=== PATIENT | male | born 1960 | race Caucasian/White ===

== ENCOUNTER 2019-05-16 16:22 | Emergency (ER) | payer SELFPAY ==
[2019-05-16] MEDS ORDERED: PROPARACAINE 0.5% OPHTH DROPS 15 ML EACHEYE STA (18:50)
[2019-05-16] MEDS ORDERED: TETANUS/DIPHTHERIA/PERTUSSIS 0.5 ML SYRINGE IM ONE (19:16)
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
[2019-05-16 19:51] VITALS: BP 120/73
== END 2019-05-16 20:06 | disposition home or self-care (01) ==
LOC: ED 16:22
DX: S05.01XA Injury of conjunctiva and corneal abrasion without foreign body, right eye, initial encounter (principal); H11.31 Conjunctival hemorrhage, right eye; W22.8XXA Striking against or struck by other objects, initial encounter; Y93.H2 Activity, gardening and landscaping; Z23 Encounter for immunization
CPT/HCPCS: 90471; 90715; 99283; J3490

== ENCOUNTER 2020-08-19 18:10 | Emergency (ER) | payer OTHER ==
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
[2020-08-19 18:51] LABS: BILIRUBIN,URINE NEGATIVE (NEGATIVE); GLUCOSE, URINE (UA) NEGATIVE (NEGATIVE); KETONES,URINE (UA) NEGATIVE (NEGATIVE); LEUKOCYTE ESTERASE, URINE NEGATIVE (NEGATIVE); NITRITE,URINE NEGATIVE (NEGATIVE); OCCULT BLOOD,URINE NEGATIVE (NEGATIVE); PROTEIN,URINE NEGATIVE (NEGATIVE); UROBILINOGEN,URINE 0.2 (NORMAL) E.U./dL (NORMAL)
[2020-08-19 18:53] LABS: CLARITY,URINE CLEAR (CLEAR)
[2020-08-19] MEDS ORDERED: ONDANSETRON 4 MG/2 ML VIAL IVP STA (19:18)
[2020-08-19 19:19] LABS: BASOPHILS % (AUTO) 0.6 %; EOSINOPHILS # (AUTO) 0.1 10^3/uL (0.0-0.7); EOSINOPHILS % (AUTO) 2.2 %; HGB - HEMOGLOBIN 16.3 g/dL (14.0-18.0); LYMPHOCYTES # (AUTO) 1.9 10^3/uL (1.5-3.5); LYMPHOCYTES % (AUTO) 35.1 %; MEAN CORPUSCULAR HEMOGLOBIN 32.9 pg (27.0-31.0); MEAN CORPUSCULAR HGB CONC 35.4 g/dL (32.0-36.0); MEAN CORPUSCULAR VOLUME 92.9 fL (80.0-94.0); MONOCYTES # (AUTO) 0.4 10^3/uL (0.0-1.0); MONOCYTES % (AUTO) 7.9 %; NEUTROPHILS # (AUTO) 2.9 10^3/uL (1.5-6.6); PLT - PLATELET COUNT 163 10^3/uL (130-450); RED BLOOD COUNT 4.95 10^6/uL (4.70-6.10); RED CELL DISTRIBUTION WIDTH 13.1 % (12.0-15.0); WHITE BLOOD COUNT 5.4 x10^3/uL (4.8-10.8)
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
[2020-08-19 19:33] LABS: ALBUMIN 4.5 g/dL (3.2-5.5); ALBUMIN/GLOBULIN RATIO 1.6 (1.0-2.2); BILIRUBIN,TOTAL 0.7 mg/dL (0.2-1.0); CALCIUM 9.7 mg/dL (8.5-10.3); CREATININE 0.8 mg/dL (0.6-1.2); TOTAL PROTEIN 7.4 g/dL (6.7-8.2)
[2020-08-19] MEDS ORDERED: IOVERSOL 320 100 ML VIAL IVP ONE ×2 (19:51→20:00)
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
[2020-08-19 21:06] VITALS: BP 122/79
== END 2020-08-19 21:07 | disposition home or self-care (01) ==
LOC: ED 18:10
DX: S39.012A Strain of muscle, fascia and tendon of lower back, initial encounter (principal); R10.12 Left upper quadrant pain; V43.52XA Car driver injured in collision with other type car in traffic accident, initial encounter; Y92.410 Unspecified street and highway as the place of occurrence of the external cause; Y99.0 Civilian activity done for income or pay; R91.8 Other nonspecific abnormal finding of lung field
CPT/HCPCS: 1040M; 72100; 74177; 80053; 81003; 83690; 85025; 96374; 99284; Q9967; 36415; 81001; 87086

== ENCOUNTER 2021-01-09 16:23 | Emergency (ER) | payer SELFPAY ==
[2021-01-09 16:32] VITALS: BP 135/76
[2021-01-09] MEDS ORDERED: HYDROcod/ACETAM 5/325 MG TABLET PO STA (16:43)
--- NOTE | 2021-01-09 16:44 | ED Physician Documentation ---
PD HPI LOWER EXT INJURY - Stated complaint Stated Complaint: LT KNEE PX - Chief complaint Chief Complaint: Ext Problem - History obtained from History obtained from: Patient, Family - Additional information Additional information: 60-year-old gentleman with about 4 to 5 days of atraumatic left knee pain along the medial part of the joint line. He is able to walk and bear weight but with effort. No swelling or fevers. No history of knee problems. Review of Systems Constitutional: denies: Fever, Chills Nose: reports: Reviewed and negative Throat: reports: Reviewed and negative Cardiac: reports: Reviewed and negative Respiratory: reports: Reviewed and negative PD PAST MEDICAL HISTORY - Past Medical History Past Medical History: No - Past Surgical History Past Surgical History: No - Present Medications Home Medications: Ambulatory Orders Medication Instructions Recorded Confirmed Ibuprofen [Motrin] 600 mg PO Q6H PRN #30 tab 08/19/20 01/09/21 HYDROcod/ACETAM 5/325 [[place] 5/325] 1 - 2 tab PO Q6H PRN #15 tablet 01/09/21 Meloxicam [Mobic] 7.5 mg PO BID PRN #20 tablet 01/09/21 - Allergies Allergies/Adverse Reactions: Allergies Allergy/AdvReac Type Severity Reaction Status Date / Time No Known Drug Allergies Allergy Verified 01/09/21 16:32 - Social History Does the pt smoke?: No Smoking Status: Never smoker Does the pt drink ETOH?: No Does the pt have substance abuse?: Yes Substance Use and Type: CBD oil / Products - Immunizations Immunizations are current?: Yes Immunizations: TDAP >10years/unknown - POLST Patient has POLST: No PD ED PE NORMAL - Vitals Vital signs reviewed: Yes - General General: Alert and oriented X 3, No acute distress - HEENT HEENT: PERRL, EOMI - Neck Neck: Supple, no meningeal sign, No bony TTP - Extremities Extremities: Other (Tender along the medial joint line. There might be a tiny effusion. Grind testing and other ligamentous testing is normal but he does have pain with MCL testing.) - Neuro Neuro: Alert and oriented X 3, Normal speech Results - Vitals Vitals: Vital Signs - 24 hr 01/09/21 16:27 Temperature 36.0 C L Heart Rate 69 Respiratory 16 Rate Blood Pressure 135/76 H O2 Saturation 97 Oxygen O2 Source Room air - Rads (name of study) L knee 4v Radiology: EMP read contemporaneously (effusion, DJD, NAD) PD MEDICAL DECISION MAKING - ED course ED course: 60-year-old gentleman with clinically probably an MCL strain of the left knee. Placed in knee immobilizer and given some pain medication. Results of x-ray discussed with patient and family and need for follow-up also discussed. I am prescribing a short course of short-acting opioid pain medication for this patient. I have reviewed the patients STATISTICAL TYPIST and no concerning findings were noted. I have discussed that the opioids are for short term therapy only, and will not be refilled from the ED. Departure - Departure Disposition: 01 Home, Self Care Clinical Impression: MCL sprain of right knee Qualifiers: Encounter type: initial encounter Qualified Code(s): S83.411A - Sprain of medial collateral ligament of right knee, initial encounter Condition: Good Record reviewed to determine appropriate education?: Yes Instructions: ED Effusion Knee Follow-Up: [facility] [Provider Group] Prescriptions: Meloxicam [Mobic] 7.5 mg PO BID PRN #20 tablet PRN Reason: Pain HYDROcod/ACETAM 5/325 [[place] 5/325] 1 - 2 tab PO Q6H PRN #15 tablet PRN Reason: Pain Comments: As discussed, it seems that you probably have strain of the medial collateral ligament of the left knee. If not better in a few days follow-up with the orthopedic clinic, the phone number is on the form here. You can walk and bear weight but I would recommend you wear the knee immobilizer while you do that. Return for new or worsening symptoms. I am prescribing a short course of narcotic pain medication for you. These are potentially dangerous and addictive medications that should be used carefully. These medications may constipate you. Take an [id number] stool softener (docusate) twice daily with plenty of water while taking these medications. If you go 24 hours without a bowel movement, take [id number] miralax, per package instructions. Do not drink or drive while taking these medications. If you received narcotic or sedating medications while in the emergency department, do not drive for 24 hours. Store this medication in a safe, secure place and out of reach of children. It is a violation of federal law to give or sell this medication to another person or to use in a manner other than prescribed. The ED will not refill narcotic prescriptions, including prescriptions lost or stolen. To dispose of unwanted medications: 1. [facility] at [address] in [place] has a medication drop box. They accept prescription medications (in pill form) Sunday through Sunday 9:00 a.m. to 5:00 p.m. 2. The [facility] accepts prescription medications (in pill form only) for disposal year round. Call for more information. 3. Contact the [facility] for the next [facility] sponsored prescription drug collection event. , [phone], or [phone]; Note that many narcotic pain relievers also contain Tylenol/acetaminophen. Please ensure that your total dose of acetaminophen from all sources does not exceed 3 g (3000 mg) per day. Forms: Activity restrictions
--- NOTE | 2021-01-09 17:28 | XRAY Report ---
PROCEDURE: Knee 4 View LT INDICATIONS: L knee pain TECHNIQUE: 4 views of the left knee(s) were acquired. COMPARISON: None. FINDINGS: Bones: No fractures or dislocations. There is medial joint space narrowing and medial osteophytes. No suspicious bony lesions. Soft tissues: A suprapatellar joint effusion is seen. No suspicious soft tissue calcifications. IMPRESSION: 1. Small joint effusion suggests possible internal derangement. 2. No fracture. 3. Degenerative changes. Reviewed by: Swapnil Cabrales on 01/09/2021 5:26 PM PDT Approved by: Swapnil Cabrales on 01/09/2021 5:26 PM PDT Station ID: [id number]
== END 2021-01-09 17:44 | disposition home or self-care (01) ==
LOC: ED 16:23
DX: S83.412A Sprain of medial collateral ligament of left knee, initial encounter (principal); X50.9XXA Other and unspecified overexertion or strenuous movements or postures, initial encounter; Y99.0 Civilian activity done for income or pay; M17.12 Unilateral primary osteoarthritis, left knee
CPT/HCPCS: 73564; 99283; A9270

== ENCOUNTER 2021-08-15 10:22 | Emergency (ER) | payer SELFPAY ==
[2021-08-15] MEDS ORDERED: IBUPROFEN 800 MG TABLET PO STA (12:05)
--- NOTE | 2021-08-15 12:07 | ED Physician Documentation ---
PD HPI DYSPNEA - Stated complaint Stated Complaint: C+ SOA/FEVER - Chief complaint Chief Complaint: Resp - History obtained from History obtained from: Patient - Additional information Additional information: 60-year-old gentleman who is otherwise healthy has been sick for 3 days with chest and abdominal pain and back pain as well as myalgias. He tested positive for COVID at home actually just prior to his symptoms starting. He has chills and low-grade fevers. He tried Tylenol and TheraFlu for the pain which was not too helpful. Review of Systems Constitutional: reports: Fever, Chills, Myalgias, Fatigue Nose: reports: Rhinorrhea / runny nose Throat: reports: Sore throat Cardiac: reports: Chest pain / pressure Respiratory: reports: Dyspnea, Cough PD PAST MEDICAL HISTORY - Past Surgical History Past Surgical History: No - Present Medications Home Medications: Ambulatory Orders Medication Instructions Recorded Confirmed HYDROcod/ACETAM 5/325 [[place] 5/325] 1 - 2 tab PO Q6H PRN #15 tablet 08/15/21 Ibuprofen [Motrin] 800 mg PO Q8H PRN #30 tablet 08/15/21 - Allergies Allergies/Adverse Reactions: Allergies Allergy/AdvReac Type Severity Reaction Status Date / Time No Known Drug Allergies Allergy Verified 01/09/21 16:32 - Social History Does the pt smoke?: No Smoking Status: Never smoker Does the pt drink ETOH?: No Does the pt have substance abuse?: Yes - Immunizations Immunizations are current?: Yes Immunizations: TDAP >10years/unknown - POLST Patient has POLST: No PD ED PE NORMAL - Vitals Vital signs reviewed: Yes - General General: Alert and oriented X 3, No acute distress - HEENT HEENT: Pharynx benign - Neck Neck: Supple, no meningeal sign, No bony TTP - Cardiac Cardiac: RRR, No murmur - Respiratory Respiratory: No respiratory distress, Clear bilaterally - Abdomen Abdomen: Soft, Non tender - Derm Derm: No rash - Extremities Extremities: No edema, No calf tenderness / cord - Neuro Neuro: Alert and oriented X 3, Normal speech Results - Vitals Vitals: Vital Signs - 24 hr 08/15/21 10:47 Temperature 37.0 C Heart Rate 101 H Respiratory 18 Rate Blood Pressure 137/85 H O2 Saturation 96 Oxygen O2 Source Room air - EKG (time done) 1217 Rate: Rate (enter#) (98) Rhythm: NSR [place]: LAD Intervals: Normal [place] QRS: Normal Ischemia: Normal ST segments PD MEDICAL DECISION MAKING - ED course ED course: 60-year-old gentleman with known diagnosis of COVID presents with myalgias back and chest pain. Physical exam is normal and oxygen saturations are excellent. Chest x-ray read as showing potential pulmonary edema but I suspect this is a viral pattern given the other findings and history and physical. He is prescribed medications to help with the symptoms and counseled on quarantine and return precautions. Departure - Departure Disposition: Home, Self Care Clinical Impression: COVID-19 Condition: Good Record reviewed to determine appropriate education?: Yes Instructions: ED Viral Syndrome Prescriptions: Ibuprofen [Motrin] 800 mg PO Q8H PRN #30 tablet PRN Reason: PAIN &/OR FEVER HYDROcod/ACETAM 5/325 [[place] 5/325] 1 - 2 tab PO Q6H PRN #15 tablet PRN Reason: Pain Comments: Envi edouard receta electrnicamente a [facility] en [place]. Tiene neumona por COVID, cecilia sugey niveles de oxgeno son muy buenos. Es comn que las personas tengan mucho dolor y karan de faraz con COVID. Debe hacer cuarentena en casa bo al menos 10 abdi ms. Le estoy recetando un ciclo corto de analgsicos narcticos. Estos son medicamentos potencialmente peligrosos y adictivos que deben usarse con cuidado. Estos medicamentos pueden causarle estreimiento. [place] un ablandador de heces de venta alicia (docusato) dos veces al da con abundante agua mientras alice estos medicamentos. Si pasa 24 horas sin defecar, tome miralax de venta alicia, segn las instrucciones del paquete. No wally ni conduzca mientras alice estos medicamentos. Si recibi medicamentos narcticos o sedantes mientras estaba en el departamento de emergencias, no conduzca bo 24 horas. Guarde vivienne medicamento en un lugar seguro y fuera del alcance de los nios. Es stalin violacin de la [facility] o mining plant operator vivienne medicamento a otra persona o usarlo de stalin manera diferente a la recetada. El ED no volver a surtir recetas de narcticos, incluidas las recetas perdidas o robadas. Para desechar medicamentos no deseados: 1. Precinto [place] del Departamento del [facility] del [facility] en [address] en [place] tiene un buzn de medicamentos. Aceptan medicamentos recetados (en forma de pastillas) de lunes a viernes de 9:00 a. m. a 5:00 p. m. 2. El Departamento de [place] de la [facility] acepta medicamentos recetados (solo en forma de pldora) para edouard eliminacin bo todo el ao. Tasha torres para ms informacin. 3. Comunquese con el alguacil del [facility] para conocer el prximo evento de recoleccin de medicamentos recetados patrocinado por la [employer]. , [id number], o [id number]; Tenga en cuenta que muchos analgsicos narcticos tambin contienen Tylenol/acetaminofn. Asegrese de que edouard dosis total de paracetamol de todas las dickson no exceda los 3 g (3000 mg) por da.
--- NOTE | 2021-08-15 12:59 | XRAY Report ---
PROCEDURE: Chest 1 View X-Ray INDICATIONS: dyspnea TECHNIQUE: One view of the chest was acquired. COMPARISON: None. FINDINGS: SUPPORT DEVICES: None. LUNGS/PLEURA: Prominent bilateral interstitial markings. No pleural effusion or space-occupying pneum othorax. MEDIASTINUM: The cardiomediastinal silhouette is within normal limits. BONES/SOFT TISSUES: No acute abnormality. IMPRESSION: 1.Prominent bilateral interstitial markings, concerning for pulmonary edema. A viral process cannot b e excluded. Reviewed by: Zach Benson MD on 08/15/2021 12:57 PM [facility] Approved by: Zach Benson MD on 08/15/2021 12:57 PM [facility] Station ID: [id number]
[2021-08-15 13:16] VITALS: BP 130/80
== END 2021-08-15 13:16 | disposition home or self-care (01) ==
LOC: ED 10:22
DX: U07.1 COVID-19 (principal)
CPT/HCPCS: 71045; 93005; 99283; 99284; A9270

== ENCOUNTER 2021-08-17 12:34 | Outpatient (CLI) | payer SELFPAY | END 2021-08-17 12:35 | disposition critical access hospital (66) | LOC: EMS 12:34 | DX: R06.02 Shortness of breath (principal); Z86.16 Personal history of COVID-19; J18.9 Pneumonia, unspecified organism | CPT/HCPCS: A0425; A0429 ==

== ENCOUNTER 2021-08-17 13:04 | Inpatient (IN) | payer OTHER ==
--- NOTE | 2021-08-17 13:30 | ED Physician Documentation ---
PD HPI DYSPNEA - Stated complaint Stated Complaint: SOA - Chief complaint Chief Complaint: Resp - History obtained from History obtained from: Patient, EMS - Additional information Additional information: 60 yo male got sick about 10 days ago with abd pain (RUQ/LUQ) and now 3 days dyspnea. Had home positive covid test. Went to [facility] yesterday and given hydrocodone, albuterol, zofran. Today he was more short of breath and had a home saturation in the mid 80s according to paramedics. He is requiring about 4 L of oxygen here. Review of Systems Ten Systems: 10 systems reviewed and negative Constitutional: reports: Fever, Chills, Myalgias, Fatigue Respiratory: reports: Dyspnea, Cough PD PAST MEDICAL HISTORY - Past Medical History Past Medical History: No - Past Surgical History Past Surgical History: No - Present Medications Home Medications: Ambulatory Orders Medication Instructions Recorded Confirmed HYDROcod/ACETAM 5/325 [[place] 5/325] 1 - 2 tab PO Q6H PRN #15 tablet 08/15/21 Ibuprofen [Motrin] 800 mg PO Q8H PRN #30 tablet 08/15/21 - Allergies Allergies/Adverse Reactions: Allergies Allergy/AdvReac Type Severity Reaction Status Date / Time No Known Drug Allergies Allergy Verified 08/17/21 13:16 - Social History Does the pt smoke?: No Smoking Status: Never smoker Does the pt drink ETOH?: No Does the pt have substance abuse?: Yes - Immunizations Immunizations are current?: Yes Immunizations: TDAP >10years/unknown - POLST Patient has POLST: No PD ED PE NORMAL - Vitals Vital signs reviewed: Yes - General General: Alert and oriented X 3, Other (He appears uncomfortable) - HEENT HEENT: PERRL, EOMI - Neck Neck: Supple, no meningeal sign, No bony TTP - Cardiac Cardiac: RRR, No murmur - Respiratory Respiratory: No respiratory distress, Other (crackles both bases) - Abdomen Abdomen: Non tender, Non distended - Back Back: No CVA TTP, No spinal TTP - Derm Derm: Normal color, Warm and dry - Extremities Extremities: No edema, No calf tenderness / cord - Neuro Neuro: Alert and oriented X 3, Other Results - Vitals Vitals: Vital Signs - 24 hr 08/17/21 08/17/21 13:09 14:27 Temperature 38.2 C H Heart Rate 99 95 Respiratory 14 16 Rate Blood Pressure 136/90 H 136/92 H O2 Saturation 96 94 Oxygen O2 Source Nasal cannula Oxygen Flow Rate 4 - EKG (time done) 1329 Rate: Rate (enter#) (100) Rhythm: NSR [place]: Normal Intervals: Normal [place] QRS: Normal Ischemia: Normal ST segments PD MEDICAL DECISION MAKING - ED course ED course: 60-year-old gentleman with diagnosis of COVID 10 days ago presents with worsening shortness of breath and now significant oxygen requirement. 61 year-Old gentleman with known positive COVID presents with increasing shortness of breath and now room air sats in the mid 80s. Given the above he was presented to the hospitalist for admission at 2:20 PM. Departure - Departure Disposition: [facility] DC/Xfer Clinical Impression: COVID-19 Respiratory failure Qualifiers: Chronicity: acute Respiratory failure complication: hypoxia Qualified Code(s): J96.01 - Acute respiratory failure with hypoxia Condition: Serious
[2021-08-17] MEDS ORDERED: DEXAMETHASONE 10 MG/ML VIAL IVP STA (13:34)
[2021-08-17] MEDS ORDERED: MORPHINE 2 MG/ML CARPUJECT IVP STA (13:37)
--- NOTE | 2021-08-17 14:06 | XRAY Report ---
PROCEDURE: Chest 1 View X-Ray INDICATIONS: dyspnea TECHNIQUE: One view of the chest was acquired. COMPARISON: X-ray 08/15/2021 FINDINGS: Surgical changes and devices: None. Lungs and pleura: In interval since the prior exam, there has been development of significant diffuse bilateral pulmonary opacities markedly worse. There is blunting of the costophrenic angles bilateral ly. Mediastinum: Mediastinal contours appear normal. Heart size is normal. Bones and chest wall: No suspicious bony lesions. Overlying soft tissues appear unremarkable. IMPRESSION: Marked interval progression of bilateral pulmonary opacities most suggestive of pneumonia. Underlying areas of edema and/or atelectasis cannot be excluded. Reviewed by: Mariah Garcia MD on 08/17/2021 2:05 PM PST Approved by: Mariah Garcia MD on 08/17/2021 2:05 PM PST Station ID: [id number]
[2021-08-17 15:34] LABS: BASOPHILS % (AUTO) 0.2 %; HCT - HEMATOCRIT 39.7 % (42.0-52.0); HGB - HEMOGLOBIN 14.5 g/dL (14.0-18.0); LYMPHOCYTES # (AUTO) 0.2 10^3/uL (1.5-3.5); LYMPHOCYTES % (AUTO) 5.5 %; MEAN CORPUSCULAR HEMOGLOBIN 34.6 pg (27.0-31.0); MEAN CORPUSCULAR HGB CONC 36.5 g/dL (32.0-36.0); MEAN CORPUSCULAR VOLUME 94.7 fL (80.0-94.0); MEAN PLATELET VOLUME 10.3 fL (7.4-11.4); MONOCYTES # (AUTO) 0.2 10^3/uL (0.0-1.0); NEUTROPHILS # (AUTO) 3.9 10^3/uL (1.5-6.6); NEUTROPHILS % (AUTO) 88.8 %; PLT - PLATELET COUNT 90 10^3/uL (130-450); RED BLOOD COUNT 4.19 10^6/uL (4.70-6.10); RED CELL DISTRIBUTION WIDTH 12.6 % (12.0-15.0); WHITE BLOOD COUNT 4.4 x10^3/uL (4.8-10.8)
[2021-08-17 15:43] LABS: CALCIUM 7.9 mg/dL (8.5-10.3); CREATININE 0.7 mg/dL (0.6-1.2); POTASSIUM 4.5 mmol/L (3.5-5.0)
[2021-08-17] MEDS ORDERED: ONDANSETRON 4 MG/2 ML VIAL IVP PRN (15:59)
[2021-08-17] MEDS ORDERED: ACETAMINOPHEN 325 MG TABLET PO PRN (15:59)
[2021-08-17] MEDS ORDERED: HYDROcod/ACETAM 5/325 MG TABLET PO PRN (15:59)
[2021-08-17 16:09] LABS: CORONAVIRUS 229E-RESP PCR NOT DETECTED; CORONAVIRUS HKU1-RESP PCR NOT DETECTED; CORONAVIRUS NL63-RESP PCR NOT DETECTED; CORONAVIRUS OC43-RESP PCR NOT DETECTED
[2021-08-17 16:15] LABS: B. PARAPERTUSSIS- RESP PCR PAN NOT DETECTED; B. PERTUSSIS- RESP PCR PANEL NOT DETECTED; C. PNEUMONIAE- RESP PCR PANEL NOT DETECTED; HUMAN METAPNEUMOVIRUS NOT DETECTED; INFLUENZA A- RESP PCR PANEL NOT DETECTED; INFLUENZA B - RESP PCR PANEL NOT DETECTED; M. PNEUMONIAE- RESP PCR PANEL NOT DETECTED; PARAINFLUENZA VIRUS 1 NOT DETECTED; PARAINFLUENZA VIRUS 2 NOT DETECTED; PARAINFLUENZA VIRUS 3 NOT DETECTED; PARAINFLUENZA VIRUS 4 NOT DETECTED; RHINOVIRUS/ENTEROVIRUS NOT DETECTED; RSV- RESP PCR PANEL NOT DETECTED; SARS-CoV-2 -RESP PCR PANEL DETECTED
--- NOTE | 2021-08-17 16:16 | HISTORY & PHYSICAL EXAMINATION ---
Chief Complaint - Chief Complaint Chief Complaint: SOB History of Present Illness - Admitted From Admitted From:: Medical floor - History Obtained From Records Reviewed: [employer] and ER note History obtained from: pt Exam Limitations: no - History of Present Illness HPI Comment/Other: This is a 60-yrs old male without significant medical history who present ER complain of shortness of breath. pt report he had positive covid test in his home kit. But when he Went to [facility] yesterday, he had negative Covid 19 test at there. He was given hydrocodone, albuterol, zofran to be d/c to home. But he continue to feel sick, malaise, body aches, cough, shortness of breath. he had middle of 80% O2 sat at home. In ER, pt is febrile at 38.2 degree. pt required 4 liter of O2 at 96% O2 sats in ER. Covid test in ER is positive. Pt report he had once Zaid&Binh vaccination. he denies abdominal pain but report whole body aches. physical exam does not reveal Trejo sign. CXR reveals Marked interval progression of bilaterally pulmonary opacities, most suggestive of pneumonia, underlying area of edema and or atelectasis cannot be excluded. Routine laboratory tests show WBC 4.4, D-dimer 394. Given above medical conditions, medical team was consulted for admission. Discussed care goal with patient, patient hope to have full code History - Past Medical History MRSA Hx?: No - Family & Social History Social History Notes: Patient reports he has no history of cigarette smoking, alcohol or drug abuse - POLST Patient has POLST: No Meds/Allgy - Home Medications Home Medications: Ambulatory Orders Medication Instructions Recorded Confirmed HYDROcod/ACETAM 5/325 [[place] 5/325] 1 - 2 tab PO Q6H PRN #15 tablet 08/15/21 Ibuprofen [Motrin] 800 mg PO Q8H PRN #30 tablet 08/15/21 - Allergies Allergies/Adverse Reactions: Allergies Allergy/AdvReac Type Severity Reaction Status Date / Time No Known Drug Allergies Allergy Verified 08/17/21 13:16 Review of Systems - Constitutional Constitutional: reports: Fatigue, Malaise - Eyes Eyes: denies: Pain - Ears, Nose & Throat Ears, Nose & Throat: denies: Ear pain - Cardiovascular Cariovascular: reports: Exertional dyspnea. denies: Palpitations, Chest pain, Syncope - Respiratory Respiratory: reports: Cough, Sputum production, SOB at rest, SOB with exertion - Gastrointestinal Gastrointestinal: denies: Abdominal pain, Nausea, Vomiting - Genitourinary Genitourinary: denies: Dysuria - Musculoskeletal Musculoskeletal: reports: Muscle aches - Integumentary Integumentary: denies: Rash - Neurological Neurological: denies: General weakness, Focal weakness, Headache, Dizziness, Numbness, Abnormal gait, Seizures, Incoordination, Slurred speech - Psychiatric Psychiatric: denies: Depression Exam - Vital Signs Vital Signs: Vital Signs x48h Temp Pulse Resp BP Pulse Ox 08/17/21 14:27 95 16 136/92 H 94 08/17/21 13:09 38.2 C H 99 14 136/90 H 96 - Physical Exam General Appearance: positive: No acute distress, Alert. negative: Lethargic Eyes Bilateral: positive: Normal inspection, No lid inflammation ENT: positive: ENT inspection nml, No signs of dehydration. negative: Purulent nasal drainage Neck: positive: Nml inspection, Trachea midline. negative: Tracheal deviation Respiratory: positive: Chest non-tender, Rales Cardiovascular: positive: Regular rate & rhythm. negative: Tachycardia, Bradycardia, Systolic murmur Peripheral Pulses: positive: 2+ Abdomen: positive: Non-tender, Nml bowel sounds, No distention. negative: Tenderness Back: positive: Nml inspection Skin: positive: Color nml, Warm, Dry. negative: Cyanosis Extremities: positive: Non-tender, Full ROM, Nml appearance. negative: Pedal edema Neurologic/Psychiatric: positive: Oriented x3, Motor nml, Sensation nml. negative: Weakness, Sensory loss, Facial droop, Slurred/abnml speech, Depressed mood/affect Conclusion/Plan - Problem List (1) Respiratory failure with hypoxia Conclusion/Plan: Patient is a COVID-19 positive, x-ray reveals bilaterally pneumonia with opacities. Patient reports he had middle 80s% O2 sats at home. Patient also had a low degree of fever. We will treat the patient for COVID-19 with Remdesivir, Decadron, Lovenox, supplemental oxygen as needed. start with gentle IVF since he has low degree of fever. Patient had a slightly elevated D-dimer, because the patient had a COVID-19 infection, we will order CTA of the chest to r/o PE (2) Pneumonia due to COVID-19 virus Conclusion/Plan: Patient had pneumonia with COVID-19 virus infection, slight low WBC as Covid 19 infection. Patient also present low degree of fever as Covid 19 virus infection. we will treat with Remdesivir, Decatron, Lovenox, supplement of O2 as needed, hold antibiotics now. - Lab Results Fish Bones: 08/17/21 15:26 08/17/21 15:26 Core Measures - Anticipated LOS I expect patient to be DC'd or transferred within 96 hours.: Yes - DVT/VTE - Prophylaxis VTE/DVT Device ordered at admit?: Yes VTE/DVT Prophylaxis med ordered at admit?: Yes
[2021-08-17] MEDS ORDERED: iohexoL-300 100 ML VIAL ONE (16:42)
[2021-08-17] MEDS: SODIUM CHLORIDE FLUSH 0.9% 10 ML SYRINGE IVP SCH (16:57)
[2021-08-17] MEDS ORDERED: SODIUM CHLORIDE 0.9% 1,000 ML IV SCH ×2 (17:00)
[2021-08-17] MEDS ORDERED: REMDESIVIR 100MG VIAL 200 MG in SODIUM CHLORIDE 0.9% 250 ML IV ONE (18:00)
--- NOTE | 2021-08-17 19:08 | CT Report ---
PROCEDURE: ANGIO CHEST W/WO INDICATIONS: SOB, Covid 19 and elevated D-dimer CONTRAST: IV CONTRAST: Isovue 300 ml: 80 PO CONTRAST: *NO PO CONTRAST TECHNIQUE: After the administration of intravenous contrast, 2 mm axial images were acquired from the pulmonary apices to the posterior costophrenic angles during the arterial phase. In addition, 1 mm lung kernel and 5 mm soft tissue kernel reconstructions were performed. 3-dimensional coronal oblique maximum int ensity projection (MIP) reformats, 8 mm axial MIP, and 5 mm coronal and sagittal MPR reformats were t hen performed through the thorax. For radiation dose reduction, the following was used: automated exp osure control, adjustment of mA and/or kV according to patient size. COMPARISON: None. FINDINGS: CT CHEST: Thyroid: Homogeneous. Vasculature: The thoracic aorta and arch vasculature have a normal appearance. Normal opacification o f the pulmonary arterial vasculature without evidence of pulmonary embolism. Heart: No cardiomegaly or significant pericardial effusion. Mediastinum: No pathologic lymph node enlargement by size criteria. Lung/pleura: Moderate to advanced bilateral groundglass airspace opacities are seen. No pleural effus ion or pneumothorax. Tracheobronchial tree: Patent. Upper abdomen: No significant abnormality. Bones: No significant abnormality. Chest wall: The chest wall and axilla are within normal limits. IMPRESSION: 1.No CT evidence of pulmonary embolus 2.. Moderate to advanced bilateral groundglass airspace opacities, likely reflecting an atypical/romelia l infectious process. Reviewed by: Zach Benson MD on 08/17/2021 7:06 PM [facility] Approved by: Zach Benson MD on 08/17/2021 7:06 PM PST Station ID: [id number]
[2021-08-17] MEDS ORDERED: iohexoL-300 100 ML VIAL IVP ONE (19:59)
[2021-08-18] MEDS: SODIUM CHLORIDE FLUSH 0.9% 10 ML SYRINGE IVP SCH ×3 (04:25→21:50)
[2021-08-18 07:15] LABS: HCT - HEMATOCRIT 39.7 % (42.0-52.0); HGB - HEMOGLOBIN 14.6 g/dL (14.0-18.0); LYMPHOCYTES # (AUTO) 0.5 10^3/uL (1.5-3.5); LYMPHOCYTES % (AUTO) 12.9 %; MEAN CORPUSCULAR HEMOGLOBIN 34.8 pg (27.0-31.0); MEAN CORPUSCULAR HGB CONC 36.8 g/dL (32.0-36.0); MEAN CORPUSCULAR VOLUME 94.7 fL (80.0-94.0); MEAN PLATELET VOLUME 10.4 fL (7.4-11.4); MONOCYTES # (AUTO) 0.3 10^3/uL (0.0-1.0); MONOCYTES % (AUTO) 8.2 %; NEUTROPHILS # (AUTO) 2.9 10^3/uL (1.5-6.6); NEUTROPHILS % (AUTO) 78.4 %; PLT - PLATELET COUNT 113 10^3/uL (130-450); RED BLOOD COUNT 4.19 10^6/uL (4.70-6.10); RED CELL DISTRIBUTION WIDTH 12.5 % (12.0-15.0); WHITE BLOOD COUNT 3.6 x10^3/uL (4.8-10.8)
[2021-08-18 07:25] LABS: CALCIUM 8.1 mg/dL (8.5-10.3); CREATININE 0.7 mg/dL (0.6-1.2); POTASSIUM 4.1 mmol/L (3.5-5.0)
[2021-08-18] MEDS: DEXAMETHASONE 10 MG/ML VIAL IVP SCH (10:28)
[2021-08-18] MEDS: REMDESIVIR 100MG VIAL 100 MG in SODIUM CHLORIDE 0.9% 100ML 100 ML IV SCH (10:29)
[2021-08-18] MEDS: ENOXAPARIN 40 MG/0.4 ML SYRINGE SUBQ SCH (10:29)
--- NOTE | 2021-08-18 13:43 | PROVIDER PROGRESS NOTE ---
Assessment/Plan - Problem List (1) Respiratory failure with hypoxia Assessment/Plan: 08/18 pt has no fever. pt report he feel much better, and he does not show acute respiratory distress now. he was comfortable rest in the bed. but pt need more Oxygen, now he had 94% on 45 HHFNC with 50% FiO2. we will continue Remdesivir, Decadron, Lovenox, supplemental oxygen as needed. Patient is a COVID-19 positive, x-ray reveals bilaterally pneumonia with opacities. Patient reports he had middle 80s% O2 sats at home. Patient also had a low degree of fever. We will treat the patient for COVID-19 with Remdesivir, Decadron, Lovenox, supplemental oxygen as needed. start with gentle IVF since he has low degree of fever. Patient had a slightly elevated D-dimer, because the patient had a COVID-19 infection, we will order CTA of the chest to r/o PE (2) Pneumonia due to COVID-19 virus Conclusion/Plan: Patient had pneumonia with COVID-19 virus infection, slight low WBC as Covid 19 infection. Patient also present low degree of fever as Covid 19 virus infection. we will treat with Remdesivir, Decatron, Lovenox, supplement of O2 as needed, hold antibiotics now. - Current Meds Current Meds: Current Medications Generic Name Dose Route Start Last Admin Trade Name Freq PRN Reason Stop Dose Admin Acetaminophen 650 mg 08/17/21 15:59 08/17/21 17:18 Acetaminophen 325 Mg Tablet PO 650 mg Q4HR PRN Administration Pain 1 to 4 Dexamethasone 6 mg 08/18/21 09:00 08/18/21 10:28 Dexamethasone 10 Mg/Ml Vial IVP 6 mg DAILY JEFF[facility] Administration Enoxaparin Sodium 40 mg 08/18/21 09:00 08/18/21 10:29 Enoxaparin 40 Mg/0.4 Ml Syringe SUBQ 40 mg DAILY JEFFREY Administration Remdesivir 100 mg/ Sodium 100 mls @ 200 mls/hr 08/18/21 09:00 08/18/21 11:55 Chloride IV 08/21/21 09:29 Infused DAILY JEFFREY Infusion Sodium Chloride 10 ml 08/17/21 17:00 08/18/21 10:30 Sodium Chloride Flush 0.9% 10 Ml Syringe IVP 10 ml 0100,0900,1700 JEFFREY Administration - Lab Result Fish Bone Diagrams: 08/18/21 07:09 08/18/21 07:09 - Additional Planning My Orders: My Active Orders 08/17/21 15:59 Telemetry- [RC] Q4HR Acetaminophen [Tylenol] 650 mg PO Q4HR PRN HYDROcod/ACETAM 5/325 [[place] 5/325] 1 tab PO Q4HR PRN Ondansetron Inj [Zofran Inj] 4 mg IVP Q6HR PRN Sodium Chloride Flush 0.9% [Normal Saline Flush 0.9%] 10 ml IVP PRN PRN 08/17/21 16:01 Activity Orders [RC] Q2HR IO [RC] IOSHIFT Initiate Bowel Care Protocol [RC] .protocol Initiate Line Care Protocol [RC] QSHIFT Initiate Personal Care Protoco [RC] .protocol Vital Signs [RC] Q4H Code Status [OTHERS] Routine Condition of Patient [OTHERS] Routine DVT Prophylaxis [OTHERS] Routine 08/17/21 16:02 IV Insert [RC] .ONCE 08/17/21 16:03 SCDs [RC] QSHIFT 08/17/21 Dinner Regular Diet [DIET] 08/17/21 17:00 Sodium Chloride Flush 0.9% [Normal Saline Flush 0.9%] 10 ml IVP 0100,0900,1700 08/17/21 17:07 RT [Oxygen Therapy] [RC] .PRN 08/18/21 09:00 Enoxaparin [Lovenox] 40 mg SUBQ DAILY Remdesivir 100Mg Vial [Veklury] 100 mg Sodium Chloride 0.9% 100Ml [Normal Saline 0.9% 100Ml] 100 ml IV DAILY dexAMETHasone [Decadron] 6 mg IVP DAILY 08/19/21 05:00 BMP - BASIC METABOLIC PANEL [CHEM] DAILYLAB CBC - COMP BLD CT W/AUTO DIFF [HEME] DAILYLAB 08/20/21 05:00 BMP - BASIC METABOLIC PANEL [CHEM] DAILYLAB CBC - COMP BLD CT W/AUTO DIFF [HEME] DAILYLAB 08/21/21 05:00 BMP - BASIC METABOLIC PANEL [CHEM] DAILYLAB CBC - COMP BLD CT W/AUTO DIFF [HEME] DAILYLAB 08/22/21 05:00 BMP - BASIC METABOLIC PANEL [CHEM] DAILYLAB CBC - COMP BLD CT W/AUTO DIFF [HEME] DAILYLAB 08/23/21 05:00 BMP - BASIC METABOLIC PANEL [CHEM] DAILYLAB CBC - COMP BLD CT W/AUTO DIFF [HEME] DAILYLAB 08/24/21 05:00 BMP - BASIC METABOLIC PANEL [CHEM] DAILYLAB CBC - COMP BLD CT W/AUTO DIFF [HEME] DAILYLAB 08/25/21 05:00 BMP - BASIC METABOLIC PANEL [CHEM] DAILYLAB CBC - COMP BLD CT W/AUTO DIFF [HEME] DAILYLAB Subjective - Subjective Patient Reports: Feeling Better, Resting Comfortably Objective Vital Signs: Vital Signs - 24 hr 08/17/21 08/17/21 08/17/21 14:27 17:00 20:52 Temperature 38.4 C H 36.6 C Heart Rate 95 Heart Rate [ 81 66 Brachial] Respiratory 16 24 22 Rate Blood Pressure 136/92 H Blood Pressure 119/66 119/80 [Right Brachial artery] O2 Saturation 94 95 95 08/17/21 08/18/21 08/18/21 23:34 05:32 08:15 Temperature 36.3 C L 36.6 C 37.0 C Heart Rate Heart Rate [ 68 73 79 Brachial] Respiratory 18 18 20 Rate Blood Pressure Blood Pressure 135/83 H 121/85 H 118/75 [Right Brachial artery] O2 Saturation 95 91 L 81 L 08/18/21 08/18/21 08:25 11:20 Temperature 36.6 C Heart Rate Heart Rate [ 74 Brachial] Respiratory 20 Rate Blood Pressure Blood Pressure 112/71 [Right Brachial artery] O2 Saturation 94 92 Oxygen O2 Source HHFNC Oxygen Flow Rate 4 I&O (Last 24 Hrs): Intake and Output Totals x24h 08/16/21 08/17/21 08/18/21 23:59 23:59 23:59 Intake Total 199.420 3471.652 Output Total 600 800 Balance 1.348 1128.652 General: Alert, Oriented x3, Cooperative HEENT: Atraumatic Neck: Supple Lymphatic: no adenopathy Neuro: Alert, Non Focal, Oriented Times 3 Cardiovascular: Regular rate, Normal S1, Normal S2 Respiratory: Chest non-tender, No respiratory distress Abdomen: Normal bowel sounds, Soft Extremities: Normal pulses - Results Results: Laboratory Results WBC 3.6 x10^3/uL (4.8-10.8) L 08/18/21 07:09 RBC 4.19 10^6/uL (4.70-6.10) L 08/18/21 07:09 Hgb 14.6 g/dL (14.0-18.0) 08/18/21 07:09 Hct 39.7 % (42.0-52.0) L 08/18/21 07:09 MCV 94.7 fL (80.0-94.0) H 08/18/21 07:09 MCH 34.8 pg (27.0-31.0) H 08/18/21 07:09 MCHC 36.8 g/dL (32.0-36.0) H 08/18/21 07:09 RDW 12.5 % (12.0-15.0) 08/18/21 07:09 Plt Count 113 10^3/uL (130-450) L 08/18/21 07:09 MPV 10.4 fL (7.4-11.4) 08/18/21 07:09 Neut # (Auto) 2.9 10^3/uL (1.5-6.6) 08/18/21 07:09 Lymph # (Auto) 0.5 10^3/uL (1.5-3.5) L 08/18/21 07:09 [place] # (Auto) 0.3 10^3/uL (0.0-1.0) 08/18/21 07:09 Eos # (Auto) 0.0 10^3/uL (0.0-0.7) 08/18/21 07:09 Baso # (Auto) 0.0 10^3/uL (0.0-0.1) 08/18/21 07:09 Absolute Nucleated RBC 0.00 x10^3/uL 08/18/21 07:09 Nucleated RBC % 0.0 /100WBC 08/18/21 07:09 D-Dimer 394.9 ng/mL (200.0-255.0) H 08/17/21 15:26 Sodium 134 mmol/L (135-145) L 08/18/21 07:09 Potassium 4.1 mmol/L (3.5-5.0) 08/18/21 07:09 Chloride 100 mmol/L (101-111) L 08/18/21 07:09 Carbon Dioxide 25 mmol/L (21-32) 08/18/21 07:09 Anion Gap 9.0 (6-13) 08/18/21 07:09 BUN 17 mg/dL (6-20) 08/18/21 07:09 Creatinine 0.7 mg/dL (0.6-1.2) 08/18/21 07:09 Estimated GFR (MDRD) 116 (>89) 08/18/21 07:09 Glucose 156 mg/dL (70-100) H 08/18/21 07:09 Calcium 8.1 mg/dL (8.5-10.3) L 08/18/21 07:09 B-Natriuretic Peptide 69 pg/mL (5-100) 08/17/21 15:26 Nasal Adenovirus (PCR) NOT DETECTED 08/17/21 14:25 Nasal B. parapertussis DNA (PCR) NOT DETECTED 08/17/21 14:25 Nasal Coronavir 229E PCR NOT DETECTED 08/17/21 14:25 Nasal Coronavir HKU1 PCR NOT DETECTED 08/17/21 14:25 Nasal Coronavir NL63 PCR NOT DETECTED 08/17/21 14:25 Nasal Coronavir OC43 PCR NOT DETECTED 08/17/21 14:25 Nasal Enterovir/Rhinovir PCR NOT DETECTED 08/17/21 14:25 Nasal Influenza B PCR NOT DETECTED 08/17/21 14:25 Nasal Influenza A PCR NOT DETECTED 08/17/21 14:25 Nasal Parainfluen 1 PCR NOT DETECTED 08/17/21 14:25 Nasal Parainfluen 2 PCR NOT DETECTED 08/17/21 14:25 Nasal Parainfluen 3 PCR NOT DETECTED 08/17/21 14:25 Nasal Parainfluen 4 PCR NOT DETECTED 08/17/21 14:25 Nasal RSV (PCR) NOT DETECTED 08/17/21 14:25 Nasal B.pertussis DNA PCR NOT DETECTED 08/17/21 14:25 Nasal C.pneumoniae (PCR) NOT DETECTED 08/17/21 14:25 Uday Human Metapneumo PCR NOT DETECTED 08/17/21 14:25 Nasal M.pneumoniae (PCR) NOT DETECTED 08/17/21 14:25 Nasal SARS-CoV-2 (PCR) DETECTED A 08/17/21 14:25 Current Medications - Current Medications Current Medications: Active Medications Acetaminophen (Acetaminophen 325 Mg Tablet) 650 mg PO Q4HR PRN PRN Reason: Pain 1 to 4 Last Admin: 08/17/21 17:18 Dose: 650 mg Hydrocodone Bitart/Acetaminophen (Hydrocod/Acetam 5/325 Mg Tablet) 1 tab PO Q4HR PRN PRN Reason: Pain 5 to 7 Dexamethasone (Dexamethasone 10 Mg/Ml Vial) 6 mg IVP DAILY [facility] Last Admin: 08/18/21 10:28 Dose: 6 mg Enoxaparin Sodium (Enoxaparin 40 Mg/0.4 Ml Syringe) 40 mg SUBQ DAILY [facility] Last Admin: 08/18/21 10:29 Dose: 40 mg Remdesivir 100 mg/ Sodium (Chloride) 100 mls @ 200 mls/hr IV DAILY [facility] Stop: 08/21/21 09:29 Last Infusion: 08/18/21 11:55 Dose: Infused Ondansetron HCl (Ondansetron 4 Mg/2 Ml Vial) 4 mg IVP Q6HR PRN PRN Reason: Nausea / Vomiting Sodium Chloride (Sodium Chloride Flush 0.9% 10 Ml Syringe) 10 ml IVP PRN PRN PRN Reason: NEEDED PER PROVIDER ORDERS Sodium Chloride (Sodium Chloride Flush 0.9% 10 Ml Syringe) 10 ml IVP 0100,0900,1700 [facility] Last Admin: 08/18/21 10:30 Dose: 10 ml
[2021-08-19] MEDS: SODIUM CHLORIDE FLUSH 0.9% 10 ML SYRINGE IVP SCH ×3 (01:13→20:52)
[2021-08-19 06:28] LABS: HCT - HEMATOCRIT 43.1 % (42.0-52.0); HGB - HEMOGLOBIN 15.8 g/dL (14.0-18.0); LYMPHOCYTES # (AUTO) 0.9 10^3/uL (1.5-3.5); LYMPHOCYTES % (AUTO) 14.2 %; MEAN CORPUSCULAR HEMOGLOBIN 34.9 pg (27.0-31.0); MEAN CORPUSCULAR HGB CONC 36.7 g/dL (32.0-36.0); MEAN CORPUSCULAR VOLUME 95.1 fL (80.0-94.0); MEAN PLATELET VOLUME 9.9 fL (7.4-11.4); MONOCYTES # (AUTO) 0.5 10^3/uL (0.0-1.0); MONOCYTES % (AUTO) 8.4 %; NEUTROPHILS # (AUTO) 4.8 10^3/uL (1.5-6.6); NEUTROPHILS % (AUTO) 76.4 %; PLT - PLATELET COUNT 207 10^3/uL (130-450); RED BLOOD COUNT 4.53 10^6/uL (4.70-6.10); RED CELL DISTRIBUTION WIDTH 12.4 % (12.0-15.0); WHITE BLOOD COUNT 6.3 x10^3/uL (4.8-10.8)
[2021-08-19 07:09] LABS: CALCIUM 8.3 mg/dL (8.5-10.3); CREATININE 0.8 mg/dL (0.6-1.2)
[2021-08-19] MEDS: REMDESIVIR 100MG VIAL 100 MG in SODIUM CHLORIDE 0.9% 100ML 100 ML IV SCH (09:30)
[2021-08-19] MEDS: guaiFENesin 600 MG TABLET PO SCH ×2 (09:30→20:52)
[2021-08-19] MEDS: ENOXAPARIN 40 MG/0.4 ML SYRINGE SUBQ SCH (09:30)
[2021-08-19] MEDS: DEXAMETHASONE 10 MG/ML VIAL IVP SCH (10:00)
--- NOTE | 2021-08-19 10:49 | PROVIDER PROGRESS NOTE ---
Assessment/Plan - Problem List (1) Respiratory failure with hypoxia Assessment/Plan: 08/19 pt report he feel good, and has no acute respiratory distress. he state we did great job to him. But pt require slightly more O2, he had 93% O2 sat on 40 HHFNC with 70% FiO2. we will continue Remdesivir, Decadron, Lovenox, supplemental oxygen as needed. continue pulse oximeter for pt 08/18 pt has no fever. pt report he feel much better, and he does not show acute respiratory distress now. he was comfortable rest in the bed. but pt need more Oxygen, now he had 94% on 45 HHFNC with 50% FiO2. we will continue Remdesivir, Decadron, Lovenox, supplemental oxygen as needed. Patient is a COVID-19 positive, x-ray reveals bilaterally pneumonia with opacities. Patient reports he had middle 80s% O2 sats at home. Patient also had a low degree of fever. We will treat the patient for COVID-19 with Remdesivir, Decadron, Lovenox, supplemental oxygen as needed. start with gentle IVF since he has low degree of fever. Patient had a slightly elevated D-dimer, because the patient had a COVID-19 infection, we will order CTA of the chest to r/o PE (2) Pneumonia due to COVID-19 virus Conclusion/Plan: Patient had pneumonia with COVID-19 virus infection, slight low WBC as Covid 19 infection. Patient also present low degree of fever as Covid 19 virus infection. we will treat with Remdesivir, Decatron, Lovenox, supplement of O2 as needed, hold antibiotics now. - Current Meds Current Meds: Current Medications Generic Name Dose Route Start Last Admin Trade Name Freq PRN Reason Stop Dose Admin Acetaminophen 650 mg 08/17/21 15:59 08/17/21 17:18 Acetaminophen 325 Mg Tablet PO 650 mg Q4HR PRN Administration Pain 1 to 4 Dexamethasone 6 mg 08/18/21 09:00 08/19/21 10:00 Dexamethasone 10 Mg/Ml Vial IVP 08/19/21 11:00 6 mg DAILY JEFFREY Administration Enoxaparin Sodium 40 mg 08/18/21 09:00 08/18/21 10:29 Enoxaparin 40 Mg/0.4 Ml Syringe SUBQ 40 mg DAILY JEFFREY Administration Remdesivir 100 mg/ Sodium 100 mls @ 200 mls/hr 08/18/21 09:00 08/18/21 11:55 Chloride IV 08/21/21 09:29 Infused DAILY JEFFREY Infusion Sodium Chloride 10 ml 08/17/21 17:00 08/19/21 01:13 Sodium Chloride Flush 0.9% 10 Ml Syringe IVP 10 ml 0100,0900,1700 JEFFREY Administration - Lab Result Fish Bone Diagrams: 08/19/21 05:55 08/19/21 06:51 - Additional Planning My Orders: My Active Orders 08/19/21 09:00 Lactated Ringers [Lr] 1,000 ml IV 100 mls/hr guaiFENesin [Mucinex] 600 mg PO BID 08/20/21 05:00 BMP - BASIC METABOLIC PANEL [CHEM] DAILYLAB CBC - COMP BLD CT W/AUTO DIFF [HEME] DAILYLAB 08/20/21 08:00 dexAMETHasone [Decadron] 6 mg PO DAILYWM 08/21/21 05:00 BMP - BASIC METABOLIC PANEL [CHEM] DAILYLAB CBC - COMP BLD CT W/AUTO DIFF [HEME] DAILYLAB 08/22/21 05:00 BMP - BASIC METABOLIC PANEL [CHEM] DAILYLAB CBC - COMP BLD CT W/AUTO DIFF [HEME] DAILYLAB 08/23/21 05:00 BMP - BASIC METABOLIC PANEL [CHEM] DAILYLAB CBC - COMP BLD CT W/AUTO DIFF [HEME] DAILYLAB 08/24/21 05:00 BMP - BASIC METABOLIC PANEL [CHEM] DAILYLAB CBC - COMP BLD CT W/AUTO DIFF [HEME] DAILYLAB 08/25/21 05:00 BMP - BASIC METABOLIC PANEL [CHEM] DAILYLAB CBC - COMP BLD CT W/AUTO DIFF [HEME] DAILYLAB Subjective - Subjective Patient Reports: Resting Comfortably Objective Vital Signs: Vital Signs - 24 hr 08/18/21 08/18/21 08/18/21 11:20 16:00 20:00 Temperature 36.6 C 36.9 C 37.2 C Heart Rate [ 74 77 Brachial] Heart Rate [ 77 Monitoring electrodes] Heart Rate [ Radial] Respiratory 20 20 20 Rate Blood Pressure [Left Radial artery] Blood Pressure 112/71 124/75 121/61 [Right Brachial artery] O2 Saturation 92 93 92 08/19/21 08/19/21 08/19/21 00:00 03:39 08:00 Temperature 37.1 C 36.5 C 37.1 C Heart Rate [ Brachial] Heart Rate [ 73 70 Monitoring electrodes] Heart Rate [ 76 Radial] Respiratory 18 18 20 Rate Blood Pressure 117/74 132/61 H [Left Radial artery] Blood Pressure 109/62 [Right Brachial artery] O2 Saturation 92 91 L 93 Oxygen O2 Source [facility]NC Oxygen Flow Rate 4 I&O (Last 24 Hrs): Intake and Output Totals x24h 08/17/21 08/18/21 08/19/21 23:59 23:59 23:59 Intake Total 221.834 7386.652 950 Output Total 600 2200 1450 Balance 1.348 655.652 -500 General: Alert, Oriented x3, Cooperative, No acute distress HEENT: Atraumatic Neck: Supple Lymphatic: no adenopathy Neuro: Alert, Non Focal, Oriented Times 3 Cardiovascular: Regular rate, Normal S1, Normal S2 Respiratory: Chest non-tender, No respiratory distress Abdomen: Normal bowel sounds, Soft Extremities: Normal pulses - Results Results: Laboratory Results WBC 6.3 x10^3/uL (4.8-10.8) 08/19/21 05:55 RBC 4.53 10^6/uL (4.70-6.10) L 08/19/21 05:55 Hgb 15.8 g/dL (14.0-18.0) 08/19/21 05:55 Hct 43.1 % (42.0-52.0) 08/19/21 05:55 MCV 95.1 fL (80.0-94.0) H 08/19/21 05:55 MCH 34.9 pg (27.0-31.0) H 08/19/21 05:55 MCHC 36.7 g/dL (32.0-36.0) H 08/19/21 05:55 RDW 12.4 % (12.0-15.0) 08/19/21 05:55 Plt Count 207 10^3/uL (130-450) 08/19/21 05:55 MPV 9.9 fL (7.4-11.4) 08/19/21 05:55 Neut # (Auto) 4.8 10^3/uL (1.5-6.6) 08/19/21 05:55 Lymph # (Auto) 0.9 10^3/uL (1.5-3.5) L 08/19/21 05:55 [place] # (Auto) 0.5 10^3/uL (0.0-1.0) 08/19/21 05:55 Eos # (Auto) 0.0 10^3/uL (0.0-0.7) 08/19/21 05:55 Baso # (Auto) 0.0 10^3/uL (0.0-0.1) 08/19/21 05:55 Absolute Nucleated RBC 0.00 x10^3/uL 08/19/21 05:55 Nucleated RBC % 0.0 /100WBC 08/19/21 05:55 D-Dimer 394.9 ng/mL (200.0-255.0) H 08/17/21 15:26 Sodium 134 mmol/L (135-145) L 08/19/21 06:51 Potassium 4.0 mmol/L (3.5-5.0) 08/19/21 06:51 Chloride 99 mmol/L (101-111) L 08/19/21 06:51 Carbon Dioxide 25 mmol/L (21-32) 08/19/21 06:51 Anion Gap 10.0 (6-13) 08/19/21 06:51 BUN 24 mg/dL (6-20) H 08/19/21 06:51 Creatinine 0.8 mg/dL (0.6-1.2) 08/19/21 06:51 Estimated GFR (MDRD) 99 (>89) 08/19/21 06:51 Glucose 176 mg/dL (70-100) H 08/19/21 06:51 Calcium 8.3 mg/dL (8.5-10.3) L 08/19/21 06:51 B-Natriuretic Peptide 69 pg/mL (5-100) 08/17/21 15:26 Nasal Adenovirus (PCR) NOT DETECTED 08/17/21 14:25 Nasal B. parapertussis DNA (PCR) NOT DETECTED 08/17/21 14:25 Nasal Coronavir 229E PCR NOT DETECTED 08/17/21 14:25 Nasal Coronavir HKU1 PCR NOT DETECTED 08/17/21 14:25 Nasal Coronavir NL63 PCR NOT DETECTED 08/17/21 14:25 Nasal Coronavir OC43 PCR NOT DETECTED 08/17/21 14:25 Nasal Enterovir/Rhinovir PCR NOT DETECTED 08/17/21 14:25 Nasal Influenza B PCR NOT DETECTED 08/17/21 14:25 Nasal Influenza A PCR NOT DETECTED 08/17/21 14:25 Nasal Parainfluen 1 PCR NOT DETECTED 08/17/21 14:25 Nasal Parainfluen 2 PCR NOT DETECTED 08/17/21 14:25 Nasal Parainfluen 3 PCR NOT DETECTED 08/17/21 14:25 Nasal Parainfluen 4 PCR NOT DETECTED 08/17/21 14:25 Nasal RSV (PCR) NOT DETECTED 08/17/21 14:25 Nasal B.pertussis DNA PCR NOT DETECTED 08/17/21 14:25 Nasal C.pneumoniae (PCR) NOT DETECTED 08/17/21 14:25 Uday Human Metapneumo PCR NOT DETECTED 08/17/21 14:25 Nasal M.pneumoniae (PCR) NOT DETECTED 08/17/21 14:25 Nasal SARS-CoV-2 (PCR) DETECTED A 08/17/21 14:25 ABX Reporting Has patient been on IV antibiotics over the past 48 hours?: No Current Medications - Current Medications Current Medications: Active Medications Acetaminophen (Acetaminophen 325 Mg Tablet) 650 mg PO Q4HR PRN PRN Reason: Pain 1 to 4 Last Admin: 08/17/21 17:18 Dose: 650 mg Hydrocodone Bitart/Acetaminophen (Hydrocod/Acetam 5/325 Mg Tablet) 1 tab PO Q4HR PRN PRN Reason: Pain 5 to 7 Dexamethasone (Dexamethasone 10 Mg/Ml Vial) 6 mg IVP DAILY [facility] Stop: 08/19/21 11:00 Last Admin: 08/19/21 10:00 Dose: 6 mg Dexamethasone (Dexamethasone 4 Mg Tablet) 6 mg PO DAILYWM [facility] Enoxaparin Sodium (Enoxaparin 40 Mg/0.4 Ml Syringe) 40 mg SUBQ DAILY [facility] Last Admin: 08/18/21 10:29 Dose: 40 mg Guaifenesin (Guaifenesin 600 Mg Tablet) 600 mg PO BID [facility] Remdesivir 100 mg/ Sodium (Chloride) 100 mls @ 200 mls/hr IV DAILY [facility] Stop: 08/21/21 09:29 Last Infusion: 08/18/21 11:55 Dose: Infused Lactated Ringer's (Lr) 1,000 mls @ 100 mls/hr IV .Q10H [facility] Stop: 08/20/21 04:59 Ondansetron HCl (Ondansetron 4 Mg/2 Ml Vial) 4 mg IVP Q6HR PRN PRN Reason: Nausea / Vomiting Sodium Chloride (Sodium Chloride Flush 0.9% 10 Ml Syringe) 10 ml IVP PRN PRN PRN Reason: NEEDED PER PROVIDER ORDERS Sodium Chloride (Sodium Chloride Flush 0.9% 10 Ml Syringe) 10 ml IVP 0100,0900,1700 [facility] Last Admin: 08/19/21 01:13 Dose: 10 ml
[2021-08-19] MEDS: LACTATED RINGERS 1,000 ML IV SCH ×2 (11:55→21:00)
[2021-08-19] MEDS: CHOLECALCIFEROL 25 MCG TABLET PO SCH (12:18)
[2021-08-20] MEDS: SODIUM CHLORIDE FLUSH 0.9% 10 ML SYRINGE IVP SCH ×4 (03:14→20:39)
[2021-08-20 07:53] LABS: BASOPHILS % (AUTO) 0.3 %; HGB - HEMOGLOBIN 14.7 g/dL (14.0-18.0); LYMPHOCYTES # (AUTO) 0.8 10^3/uL (1.5-3.5); LYMPHOCYTES % (AUTO) 11.4 %; MEAN CORPUSCULAR HEMOGLOBIN 34.8 pg (27.0-31.0); MEAN CORPUSCULAR HGB CONC 36.8 g/dL (32.0-36.0); MEAN CORPUSCULAR VOLUME 94.8 fL (80.0-94.0); MEAN PLATELET VOLUME 9.6 fL (7.4-11.4); MONOCYTES # (AUTO) 0.8 10^3/uL (0.0-1.0); MONOCYTES % (AUTO) 11.1 %; NEUTROPHILS # (AUTO) 5.1 10^3/uL (1.5-6.6); NEUTROPHILS % (AUTO) 75.4 %; PLT - PLATELET COUNT 216 10^3/uL (130-450); RED BLOOD COUNT 4.22 10^6/uL (4.70-6.10); RED CELL DISTRIBUTION WIDTH 12.4 % (12.0-15.0); WHITE BLOOD COUNT 6.8 x10^3/uL (4.8-10.8)
[2021-08-20 08:10] LABS: CALCIUM 8.4 mg/dL (8.5-10.3); CREATININE 0.7 mg/dL (0.6-1.2); POTASSIUM 4.1 mmol/L (3.5-5.0)
[2021-08-20] MEDS: dexAMETHasone 4 MG TABLET PO SCH (08:35)
[2021-08-20] MEDS: guaiFENesin 600 MG TABLET PO SCH ×2 (08:35→20:36)
[2021-08-20] MEDS: ENOXAPARIN 40 MG/0.4 ML SYRINGE SUBQ SCH (08:35)
[2021-08-20] MEDS: CHOLECALCIFEROL 25 MCG TABLET PO SCH (08:35)
[2021-08-20] MEDS: REMDESIVIR 100MG VIAL 100 MG in SODIUM CHLORIDE 0.9% 100ML 100 ML IV SCH (10:26)
[2021-08-20] MEDS: SODIUM CHLORIDE FLUSH 0.9% 10 ML SYRINGE IVP PRN (10:27)
--- NOTE | 2021-08-20 10:31 | PROVIDER PROGRESS NOTE ---
Assessment/Plan - Problem List (1) Respiratory failure with hypoxia Assessment/Plan: 08/20 pt need 100% FiO2 and 40 HHFNC of O2, pt show 90% O2 sat with Tachypnea. But pt did not present acute respiratory distress now. Patient has no fever, with a normal range WBC. order CXR and ABGs and transfer to ICU, and Initiate BiPAP after discussed with ICU physician and RT, since pt's conditions is worsening. Discussed the care plan with pt, and pt's daughter by phone, updated pt's medical conditions, answered their questions. Both agreed continue to stay at hospital and continue care at here. 08/19 pt report he feel good, and has no acute respiratory distress. he state we did great job to him. But pt require slightly more O2, he had 93% O2 sat on 40 HHFNC with 70% FiO2. we will continue Remdesivir, Decadron, Lovenox, supplemental oxygen as needed. continue pulse oximeter for pt 08/18 pt has no fever. pt report he feel much better, and he does not show acute respiratory distress now. he was comfortable rest in the bed. but pt need more Oxygen, now he had 94% on 45 HHFNC with 50% FiO2. we will continue Remdesivir, Decadron, Lovenox, supplemental oxygen as needed. Patient is a COVID-19 positive, x-ray reveals bilaterally pneumonia with opacities. Patient reports he had middle 80s% O2 sats at home. Patient also had a low degree of fever. We will treat the patient for COVID-19 with Remdesivir, Decadron, Lovenox, supplemental oxygen as needed. start with gentle IVF since he has low degree of fever. Patient had a slightly elevated D-dimer, because the patient had a COVID-19 infection, we will order CTA of the chest to r/o PE (2) Pneumonia due to COVID-19 virus Conclusion/Plan: Patient had pneumonia with COVID-19 virus infection, slight low WBC as Covid 19 infection. Patient also present low degree of fever as Covid 19 virus infection. we will treat with Remdesivir, Decatron, Lovenox, supplement of O2 as needed, hold antibiotics now. (3)insomnia Patient report he has not good sleep on last night, hope to have sleep meds, add Restoril PRN - Current Meds Current Meds: Current Medications Generic Name Dose Route Start Last Admin Trade Name Clarita PRN Reason Stop Dose Admin Acetaminophen 650 mg 08/17/21 15:59 08/17/21 17:18 Acetaminophen 325 Mg Tablet PO 650 mg Q4HR PRN Administration Pain 1 to 4 Cholecalciferol 50 mcg 08/19/21 12:00 08/20/21 08:35 Cholecalciferol 25 Mcg Tablet PO 50 mcg DAILY JEFFREY Administration Dexamethasone 6 mg 08/20/21 08:00 08/20/21 08:35 Dexamethasone 4 Mg Tablet PO 6 mg DAILYWM JEFFREY Administration Enoxaparin Sodium 40 mg 08/18/21 09:00 08/20/21 08:35 Enoxaparin 40 Mg/0.4 Ml Syringe SUBQ 40 mg DAILY JEFFREY Administration Guaifenesin 600 mg 08/19/21 09:00 08/20/21 08:35 Guaifenesin 600 Mg Tablet PO 600 mg BID JEFFREY Administration Remdesivir 100 mg/ Sodium 100 mls @ 200 mls/hr 08/18/21 09:00 08/19/21 10:15 Chloride IV 08/21/21 09:29 Infused DAILY JEFFREY Infusion Sodium Chloride 10 ml 08/17/21 17:00 08/20/21 08:35 Sodium Chloride Flush 0.9% 10 Ml Syringe IVP 10 ml 0100,0900,1700 JEFFREY Administration - Lab Result Fish Bone Diagrams: 08/20/21 07:10 08/20/21 07:10 - Additional Planning My Orders: My Active Orders 08/19/21 Lunch Regular Diet [DIET] 08/19/21 12:00 Cholecalciferol [Vitamin D3] 50 mcg PO DAILY 08/20/21 07:50 Temazepam [Restoril] 15 mg PO QPM PRN 08/20/21 08:00 dexAMETHasone [Decadron] 6 mg PO DAILYWM 08/20/21 10:21 Chest 1 View X-Ray [XR] Stat 08/20/21 10:22 Admit [Admit \ Transfer \ Status] [RC] .ONCE RT - Obtain Arterial Specimen [RC] .ONCE ABG - ARTERIAL BLOOD GAS [BG] Stat 08/21/21 05:00 BMP - BASIC METABOLIC PANEL [CHEM] DAILYLAB CBC - COMP BLD CT W/AUTO DIFF [HEME] DAILYLAB 08/22/21 05:00 BMP - BASIC METABOLIC PANEL [CHEM] DAILYLAB CBC - COMP BLD CT W/AUTO DIFF [HEME] DAILYLAB 08/23/21 05:00 BMP - BASIC METABOLIC PANEL [CHEM] DAILYLAB CBC - COMP BLD CT W/AUTO DIFF [HEME] DAILYLAB 08/24/21 05:00 BMP - BASIC METABOLIC PANEL [CHEM] DAILYLAB CBC - COMP BLD CT W/AUTO DIFF [HEME] DAILYLAB 08/25/21 05:00 BMP - BASIC METABOLIC PANEL [CHEM] DAILYLAB CBC - COMP BLD CT W/AUTO DIFF [HEME] DAILYLAB Subjective - Subjective Patient Reports: Resting Comfortably Objective Vital Signs: Vital Signs - 24 hr 08/19/21 08/19/21 08/19/21 10:49 12:25 17:16 Temperature 36.3 C L 36.3 C L Heart Rate [ Brachial] Heart Rate [ 72 66 Monitoring electrodes] Respiratory 24 20 Rate Blood Pressure 124/75 118/69 [Right Brachial artery] O2 Saturation 100 97 97 08/19/21 08/20/21 08/20/21 20:44 01:00 04:11 Temperature 37.2 C 37.0 C 36.1 C L Heart Rate [ 60 Brachial] Heart Rate [ 68 72 Monitoring electrodes] Respiratory 18 18 19 Rate Blood Pressure 107/63 127/79 112/71 [Right Brachial artery] O2 Saturation 92 92 95 08/20/21 08:30 Temperature 36.7 C Heart Rate [ Brachial] Heart Rate [ 71 Monitoring electrodes] Respiratory 26 H Rate Blood Pressure 125/69 [Right Brachial artery] O2 Saturation 90 L Oxygen O2 Source HHFNC Oxygen Flow Rate 4 I&O (Last 24 Hrs): Intake and Output Totals x24h 08/18/21 08/19/21 08/20/21 23:59 23:59 23:59 Intake Total 2855.652 3855.333 1400 Output Total 2200 3425 300 Balance 655.652 912.647 3558 General: Alert, Oriented x3, Cooperative, No acute distress HEENT: Atraumatic Neck: Supple Lymphatic: no adenopathy Neuro: Alert, Non Focal, Oriented Times 3 Cardiovascular: Regular rate, Normal S1, Normal S2 Respiratory: Chest non-tender, Other (pt has no respiratory distress at rest but present respiratory distress and O2 sat drop when he is on exertion.) Abdomen: Normal bowel sounds, Soft Extremities: Normal pulses - Results Results: Laboratory Results WBC 6.8 x10^3/uL (4.8-10.8) 08/20/21 07:10 RBC 4.22 10^6/uL (4.70-6.10) L 08/20/21 07:10 Hgb 14.7 g/dL (14.0-18.0) 08/20/21 07:10 Hct 40.0 % (42.0-52.0) L 08/20/21 07:10 MCV 94.8 fL (80.0-94.0) H 08/20/21 07:10 MCH 34.8 pg (27.0-31.0) H 08/20/21 07:10 MCHC 36.8 g/dL (32.0-36.0) H 08/20/21 07:10 RDW 12.4 % (12.0-15.0) 08/20/21 07:10 Plt Count 216 10^3/uL (130-450) 08/20/21 07:10 MPV 9.6 fL (7.4-11.4) 08/20/21 07:10 Neut # (Auto) 5.1 10^3/uL (1.5-6.6) 08/20/21 07:10 Lymph # (Auto) 0.8 10^3/uL (1.5-3.5) L 08/20/21 07:10 [place] # (Auto) 0.8 10^3/uL (0.0-1.0) 08/20/21 07:10 Eos # (Auto) 0.0 10^3/uL (0.0-0.7) 08/20/21 07:10 Baso # (Auto) 0.0 10^3/uL (0.0-0.1) 08/20/21 07:10 Absolute Nucleated RBC 0.00 x10^3/uL 08/20/21 07:10 Nucleated RBC % 0.0 /100WBC 08/20/21 07:10 D-Dimer 394.9 ng/mL (200.0-255.0) H 08/17/21 15:26 Sodium 136 mmol/L (135-145) 08/20/21 07:10 Potassium 4.1 mmol/L (3.5-5.0) 08/20/21 07:10 Chloride 103 mmol/L (101-111) 08/20/21 07:10 Carbon Dioxide 24 mmol/L (21-32) 08/20/21 07:10 Anion Gap 9.0 (6-13) 08/20/21 07:10 BUN 18 mg/dL (6-20) 08/20/21 07:10 Creatinine 0.7 mg/dL (0.6-1.2) 08/20/21 07:10 Estimated GFR (MDRD) 116 (>89) 08/20/21 07:10 Glucose 118 mg/dL (70-100) H 08/20/21 07:10 Calcium 8.4 mg/dL (8.5-10.3) L 08/20/21 07:10 B-Natriuretic Peptide 69 pg/mL (5-100) 08/17/21 15:26 Nasal Adenovirus (PCR) NOT DETECTED 08/17/21 14:25 Nasal B. parapertussis DNA (PCR) NOT DETECTED 08/17/21 14:25 Nasal Coronavir 229E PCR NOT DETECTED 08/17/21 14:25 Nasal Coronavir HKU1 PCR NOT DETECTED 08/17/21 14:25 Nasal Coronavir NL63 PCR NOT DETECTED 08/17/21 14:25 Nasal Coronavir OC43 PCR NOT DETECTED 08/17/21 14:25 Nasal Enterovir/Rhinovir PCR NOT DETECTED 08/17/21 14:25 Nasal Influenza B PCR NOT DETECTED 08/17/21 14:25 Nasal Influenza A PCR NOT DETECTED 08/17/21 14:25 Nasal Parainfluen 1 PCR NOT DETECTED 08/17/21 14:25 Nasal Parainfluen 2 PCR NOT DETECTED 08/17/21 14:25 Nasal Parainfluen 3 PCR NOT DETECTED 08/17/21 14:25 Nasal Parainfluen 4 PCR NOT DETECTED 08/17/21 14:25 Nasal RSV (PCR) NOT DETECTED 08/17/21 14:25 Nasal B.pertussis DNA PCR NOT DETECTED 08/17/21 14:25 Nasal C.pneumoniae (PCR) NOT DETECTED 08/17/21 14:25 Uday Human Metapneumo PCR NOT DETECTED 08/17/21 14:25 Nasal M.pneumoniae (PCR) NOT DETECTED 08/17/21 14:25 Nasal SARS-CoV-2 (PCR) DETECTED A 08/17/21 14:25 ABX Reporting Has patient been on IV antibiotics over the past 48 hours?: No Current Medications - Current Medications Current Medications: Active Medications Acetaminophen (Acetaminophen 325 Mg Tablet) 650 mg PO Q4HR PRN PRN Reason: Pain 1 to 4 Last Admin: 08/17/21 17:18 Dose: 650 mg Hydrocodone Bitart/Acetaminophen (Hydrocod/Acetam 5/325 Mg Tablet) 1 tab PO Q4HR PRN PRN Reason: Pain 5 to 7 Cholecalciferol (Cholecalciferol 25 Mcg Tablet) 50 mcg PO DAILY [facility] Last Admin: 08/20/21 08:35 Dose: 50 mcg Dexamethasone (Dexamethasone 4 Mg Tablet) 6 mg PO DAILYWM [facility] Last Admin: 08/20/21 08:35 Dose: 6 mg Enoxaparin Sodium (Enoxaparin 40 Mg/0.4 Ml Syringe) 40 mg SUBQ DAILY [facility] Last Admin: 08/20/21 08:35 Dose: 40 mg Guaifenesin (Guaifenesin 600 Mg Tablet) 600 mg PO BID [facility] Last Admin: 08/20/21 08:35 Dose: 600 mg Remdesivir 100 mg/ Sodium (Chloride) 100 mls @ 200 mls/hr IV DAILY [facility] Stop: 08/21/21 09:29 Last Admin: 08/20/21 10:26 Dose: 200 mls/hr Ondansetron HCl (Ondansetron 4 Mg/2 Ml Vial) 4 mg IVP Q6HR PRN PRN Reason: Nausea / Vomiting Sodium Chloride (Sodium Chloride Flush 0.9% 10 Ml Syringe) 10 ml IVP PRN PRN PRN Reason: NEEDED PER PROVIDER ORDERS Last Admin: 08/20/21 10:27 Dose: 10 ml Sodium Chloride (Sodium Chloride Flush 0.9% 10 Ml Syringe) 10 ml IVP 0100,0900,1700 [facility] Last Admin: 08/20/21 08:35 Dose: 10 ml Temazepam (Temazepam 15 Mg Capsule) 15 mg PO QPM PRN PRN Reason: Insomnia No Known Home Medications 08/19/21
--- NOTE | 2021-08-20 11:10 | XRAY Report ---
PROCEDURE: Chest 1 View X-Ray INDICATIONS: Shortness of breath, COVID 19 TECHNIQUE: One view of the chest was acquired. COMPARISON: 08/17/2021, 08/15/2021. Correlation is also made with chest CT, 08/17/2021. FINDINGS: Surgical changes and devices: None. Lungs and pleura: Low lung volumes and diffuse interstitial infiltrates are seen. Interstitial infil trates are slightly improved compared to the 08/17/2009 examination. No pleural effusions or pneumotho rax. There is stable elevation of the right hemidiaphragm. Mediastinum: Mediastinal contours appear normal. Heart size is normal. Bones and chest wall: No suspicious bony lesions. Overlying soft tissues appear unremarkable. IMPRESSION: Slightly decreased bilateral interstitial infiltrates compared to 08/17/2021, which is consistent with improving COVID pneumonia. Reviewed by: Ambrose Perez MD on 08/20/2021 10:08 AM [facility] Approved by: Ambrose Perez MD on 08/20/2021 10:08 AM [facility] Station ID: [id number]
[2021-08-20 12:08] LABS: ABG PCO2 35 mmHg (34-45); ABG PH 7.46 (7.35-7.45)
[2021-08-20 12:09] LABS: ABG BASE EXCESS 0.5 mmol/L (-2.0-3.0); ABG HCO3 23.8 mmol/L (22.0-26.0); ABG OXYGEN SATURATION 96 % (94-98); ABG PO2 80 mmHg (80-100); ABG TCO2 24.8 MMOL/L (21.0-29.0); ALLEN TEST POSITIVE
[2021-08-20 12:10] LABS: ABG RESPIRATORY RATE 32 b/min
[2021-08-20] MEDS: TEMAZEPAM 15 MG CAPSULE PO PRN (22:34)
[2021-08-21] MEDS: SODIUM CHLORIDE FLUSH 0.9% 10 ML SYRINGE IVP PRN (05:13)
[2021-08-21 05:25] LABS: CALCIUM 8.3 mg/dL (8.5-10.3); CREATININE 0.8 mg/dL (0.6-1.2); POTASSIUM 3.9 mmol/L (3.5-5.0)
[2021-08-21 05:26] LABS: BASOPHILS % (AUTO) 0.6 %; EOSINOPHILS % (AUTO) 0.6 %; HCT - HEMATOCRIT 40.8 % (42.0-52.0); HGB - HEMOGLOBIN 14.6 g/dL (14.0-18.0); LYMPHOCYTES # (AUTO) 0.8 10^3/uL (1.5-3.5); MEAN CORPUSCULAR HEMOGLOBIN 34.4 pg (27.0-31.0); MEAN CORPUSCULAR HGB CONC 35.8 g/dL (32.0-36.0); MEAN PLATELET VOLUME 9.3 fL (7.4-11.4); MONOCYTES # (AUTO) 0.5 10^3/uL (0.0-1.0); MONOCYTES % (AUTO) 7.3 %; NEUTROPHILS # (AUTO) 5.2 10^3/uL (1.5-6.6); NEUTROPHILS % (AUTO) 76.1 %; PLT - PLATELET COUNT 259 10^3/uL (130-450); RED BLOOD COUNT 4.25 10^6/uL (4.70-6.10); RED CELL DISTRIBUTION WIDTH 12.5 % (12.0-15.0); WHITE BLOOD COUNT 6.8 x10^3/uL (4.8-10.8)
[2021-08-21] MEDS: dexAMETHasone 4 MG TABLET PO SCH (08:00)
[2021-08-21] MEDS: CHOLECALCIFEROL 25 MCG TABLET PO SCH (08:05)
[2021-08-21] MEDS: ENOXAPARIN 40 MG/0.4 ML SYRINGE SUBQ SCH (08:05)
[2021-08-21] MEDS: guaiFENesin 600 MG TABLET PO SCH ×2 (08:14→21:33)
[2021-08-21] MEDS: SODIUM CHLORIDE FLUSH 0.9% 10 ML SYRINGE IVP SCH ×3 (09:10→21:22)
[2021-08-21] MEDS: REMDESIVIR 100MG VIAL 100 MG in SODIUM CHLORIDE 0.9% 100ML 100 ML IV SCH (09:15)
[2021-08-21] MEDS ORDERED: SODIUM CHLORIDE 0.9% 500 ML IV ONE (11:57)
--- NOTE | 2021-08-21 12:08 | PROVIDER PROGRESS NOTE ---
Assessment/Plan - Problem List (1) Respiratory failure with hypoxia Assessment/Plan: 08/21 pt is at ICU closely monitored. pt report he feel better, had good sleep on last night, and did not present acute respiratory distress. but he still need 100% FIO2 and 50HHFNC to keep his 95% sat. order 500 NC IVF bolus for his lower BP. CXR reveal on yesterday reveal improving Covid pneumonia and good ABGs study. pt finished Remdesivir, will continue Decadron, Lovenox, high Flow O2 now, continue pulse oximeter monitor and adjust care plan as needed. 08/20 pt need 100% FiO2 and 40 HHFNC of O2, pt show 90% O2 sat with Tachypnea. But pt did not present acute respiratory distress now. Patient has no fever, with a normal range WBC. order CXR and ABGs and transfer to ICU, and Initiate BiPAP after discussed with ICU physician and RT, since pt's conditions is worsening. Discussed the care plan with pt, and pt's daughter by phone, updated pt's medical conditions, answered their questions. Both agreed continue to stay at hospital and continue care at here. 08/19 pt report he feel good, and has no acute respiratory distress. he state we did great job to him. But pt require slightly more O2, he had 93% O2 sat on 40 HHFNC with 70% FiO2. we will continue Remdesivir, Decadron, Lovenox, supplemental oxygen as needed. continue pulse oximeter for pt 08/18 pt has no fever. pt report he feel much better, and he does not show acute respiratory distress now. he was comfortable rest in the bed. but pt need more Oxygen, now he had 94% on 45 HHFNC with 50% FiO2. we will continue Remdesivir, Decadron, Lovenox, supplemental oxygen as needed. Patient is a COVID-19 positive, x-ray reveals bilaterally pneumonia with opacities. Patient reports he had middle 80s% O2 sats at home. Patient also had a low degree of fever. We will treat the patient for COVID-19 with Remdesivir, Decadron, Lovenox, supplemental oxygen as needed. start with gentle IVF since he has low degree of fever. Patient had a slightly elevated D-dimer, because the patient had a COVID-19 infection, we will order CTA of the chest to r/o PE (2) Pneumonia due to COVID-19 virus Conclusion/Plan: Patient had pneumonia with COVID-19 virus infection, slight low WBC as Covid 19 infection. Patient also present low degree of fever as Covid 19 virus infection. we will treat with Remdesivir, Decatron, Lovenox, supplement of O2 as needed, hold antibiotics now. (3)insomnia 08/21, pt report he had good sleep on last night, will continue Restoril PRN Patient report he has not good sleep on last night, hope to have sleep meds, add Restoril PRN - Current Meds Current Meds: Current Medications Generic Name Dose Route Start Last Admin Trade Name Freq PRN Reason Stop Dose Admin Acetaminophen 650 mg 08/17/21 15:59 08/17/21 17:18 Acetaminophen 325 Mg Tablet PO 650 mg Q4HR PRN Administration Pain 1 to 4 Cholecalciferol 50 mcg 08/19/21 12:00 08/21/21 08:05 Cholecalciferol 25 Mcg Tablet PO 50 mcg DAILY JEFFREY Administration Dexamethasone 6 mg 08/20/21 08:00 08/21/21 08:00 Dexamethasone 4 Mg Tablet PO 6 mg DAILYWM JEFFREY Administration Enoxaparin Sodium 40 mg 08/18/21 09:00 08/21/21 08:05 Enoxaparin 40 Mg/0.4 Ml Syringe SUBQ 40 mg DAILY JEFFREY Administration Guaifenesin 600 mg 08/19/21 09:00 08/21/21 08:14 Guaifenesin 600 Mg Tablet PO 600 mg BID JEFFREY Administration Sodium Chloride 10 ml 08/17/21 15:59 08/21/21 05:13 Sodium Chloride Flush 0.9% 10 Ml Syringe IVP 10 ml PRN PRN Administration NEEDED PER PROVIDER ORDERS Sodium Chloride 10 ml 08/17/21 17:00 08/21/21 09:10 Sodium Chloride Flush 0.9% 10 Ml Syringe IVP 10 ml 0100,0900,1700 JEFFREY Administration Temazepam 15 mg 08/20/21 07:50 08/20/21 22:34 Temazepam 15 Mg Capsule PO 15 mg QPM PRN Administration Insomnia - Lab Result Fish Bone Diagrams: 08/21/21 04:40 08/21/21 04:40 - Additional Planning My Orders: My Active Orders 08/21/21 11:57 0.9% NS 500ML BOLUS X1 Sodium Chloride 0.9% [Normal Saline 0.9%] 500 ml IV ONCE 08/22/21 05:00 BMP - BASIC METABOLIC PANEL [CHEM] DAILYLAB CBC - COMP BLD CT W/AUTO DIFF [HEME] DAILYLAB 08/23/21 05:00 BMP - BASIC METABOLIC PANEL [CHEM] DAILYLAB CBC - COMP BLD CT W/AUTO DIFF [HEME] DAILYLAB 08/24/21 05:00 BMP - BASIC METABOLIC PANEL [CHEM] DAILYLAB CBC - COMP BLD CT W/AUTO DIFF [HEME] DAILYLAB 08/25/21 05:00 BMP - BASIC METABOLIC PANEL [CHEM] DAILYLAB CBC - COMP BLD CT W/AUTO DIFF [HEME] DAILYLAB Subjective - Subjective Patient Reports: Feeling Better, Resting Comfortably Objective Vital Signs: Vital Signs - 24 hr 08/20/21 08/20/21 08/20/21 13:00 13:30 14:00 Temperature Heart Rate [ 80 66 Monitoring electrodes] Respiratory 38 H 22 24 Rate Blood Pressure 126/84 H 124/77 [Right Brachial artery] O2 Saturation 96 93 95 08/20/21 08/20/21 08/20/21 15:00 16:00 17:00 Temperature 98 C H Heart Rate [ 74 71 72 Monitoring electrodes] Respiratory 18 31 H 32 H Rate Blood Pressure 105/91 H 121/84 H 111/72 [Right Brachial artery] O2 Saturation 96 98 90 L 08/20/21 08/20/21 08/20/21 18:00 19:00 20:00 Temperature 36.6 C Heart Rate [ 76 65 55 L Monitoring electrodes] Respiratory 26 H 25 H 22 Rate Blood Pressure 131/67 H 117/78 113/75 [Right Brachial artery] O2 Saturation 94 91 L 94 08/20/21 08/20/21 08/20/21 21:00 22:00 23:00 Temperature 37.0 C Heart Rate [ 62 56 L 54 L Monitoring electrodes] Respiratory 25 H 24 24 Rate Blood Pressure 114/82 H 105/81 H 106/76 [Right Brachial artery] O2 Saturation 94 91 L 91 L 08/21/21 08/21/21 08/21/21 00:00 00:31 01:00 Temperature Heart Rate [ 60 71 Monitoring electrodes] Respiratory 24 21 31 H Rate Blood Pressure 94/66 101/71 [Right Brachial artery] O2 Saturation 89 L 87 L 75 L 08/21/21 08/21/21 08/21/21 01:12 02:00 03:00 Temperature Heart Rate [ 56 L 59 L Monitoring electrodes] Respiratory 26 H 23 24 Rate Blood Pressure 95/72 103/62 [Right Brachial artery] O2 Saturation 93 91 L 96 08/21/21 08/21/21 08/21/21 04:00 05:00 06:00 Temperature Heart Rate [ 65 66 69 Monitoring electrodes] Respiratory 32 H 24 26 H Rate Blood Pressure 107/72 105/69 102/58 L [Right Brachial artery] O2 Saturation 92 97 94 08/21/21 08/21/21 08/21/21 07:00 08:00 09:00 Temperature 36.9 C Heart Rate [ 56 L 62 70 Monitoring electrodes] Respiratory 28 H 31 H 29 H Rate Blood Pressure 97/66 109/72 113/70 [Right Brachial artery] O2 Saturation 94 95 95 08/21/21 08/21/21 08/21/21 09:45 10:00 11:00 Temperature Heart Rate [ 61 71 Monitoring electrodes] Respiratory 35 H 27 H 31 H Rate Blood Pressure 100/72 81/63 L [Right Brachial artery] O2 Saturation 94 94 93 Oxygen O2 Source HHFNC Oxygen Flow Rate 4 I&O (Last 24 Hrs): Intake and Output Totals x24h 08/19/21 08/20/21 08/21/21 23:59 23:59 23:59 Intake Total 3855.333 1720 550 Output Total 3425 2525 875 Balance 430.333 -805 -325 General: Alert, Oriented x3, Cooperative, No acute distress HEENT: Atraumatic Neck: Supple Lymphatic: no adenopathy Neuro: Alert, Non Focal, Oriented Times 3 Cardiovascular: Regular rate, Normal S1, Normal S2 Respiratory: Chest non-tender, No respiratory distress Abdomen: Normal bowel sounds, Soft Extremities: Normal pulses - Results Results: Laboratory Results WBC 6.8 x10^3/uL (4.8-10.8) 08/21/21 04:40 RBC 4.25 10^6/uL (4.70-6.10) L 08/21/21 04:40 Hgb 14.6 g/dL (14.0-18.0) 08/21/21 04:40 Hct 40.8 % (42.0-52.0) L 08/21/21 04:40 MCV 96.0 fL (80.0-94.0) H 08/21/21 04:40 MCH 34.4 pg (27.0-31.0) H 08/21/21 04:40 MCHC 35.8 g/dL (32.0-36.0) 08/21/21 04:40 RDW 12.5 % (12.0-15.0) 08/21/21 04:40 Plt Count 259 10^3/uL (130-450) 08/21/21 04:40 MPV 9.3 fL (7.4-11.4) 08/21/21 04:40 Neut # (Auto) 5.2 10^3/uL (1.5-6.6) 08/21/21 04:40 Lymph # (Auto) 0.8 10^3/uL (1.5-3.5) L 08/21/21 04:40 [place] # (Auto) 0.5 10^3/uL (0.0-1.0) 08/21/21 04:40 Eos # (Auto) 0.0 10^3/uL (0.0-0.7) 08/21/21 04:40 Baso # (Auto) 0.0 10^3/uL (0.0-0.1) 08/21/21 04:40 Absolute Nucleated RBC 0.00 x10^3/uL 08/21/21 04:40 Nucleated RBC % 0.0 /100WBC 08/21/21 04:40 D-Dimer 394.9 ng/mL (200.0-255.0) H 08/17/21 15:26 Bld Gas Analysis Time 1206 08/20/21 12:00 ABG pH 7.46 (7.35-7.45) H 08/20/21 12:00 ABG pCO2 35 mmHg (34-45) 08/20/21 12:00 ABG pO2 80 mmHg (80-100) 08/20/21 12:00 ABG HCO3 23.8 mmol/L (22.0-26.0) 08/20/21 12:00 ABG Total CO2 24.8 MMOL/L (21.0-29.0) 08/20/21 12:00 ABG O2 Saturation 96 % (94-98) 08/20/21 12:00 ABG Base Excess 0.5 mmol/L (-2.0-3.0) 08/20/21 12:00 Quinten Test POSITIVE 08/20/21 12:00 Respiration Rate 32 b/min 08/20/21 12:00 O2 Delivery Device NASAL CANNULA 08/20/21 12:00 O2 Liters/Min 40.00 LPM 08/20/21 12:00 FiO2 100.00 08/20/21 12:00 Sodium 139 mmol/L (135-145) 08/21/21 04:40 Potassium 3.9 mmol/L (3.5-5.0) 08/21/21 04:40 Chloride 101 mmol/L (101-111) 08/21/21 04:40 Carbon Dioxide 26 mmol/L (21-32) 08/21/21 04:40 Anion Gap 12.0 (6-13) 08/21/21 04:40 BUN 21 mg/dL (6-20) H 08/21/21 04:40 Creatinine 0.8 mg/dL (0.6-1.2) 08/21/21 04:40 Estimated GFR (MDRD) 99 (>89) 08/21/21 04:40 Glucose 160 mg/dL (70-100) H 08/21/21 04:40 Calcium 8.3 mg/dL (8.5-10.3) L 08/21/21 04:40 B-Natriuretic Peptide 69 pg/mL (5-100) 08/17/21 15:26 Nasal Adenovirus (PCR) NOT DETECTED 08/17/21 14:25 Nasal B. parapertussis DNA (PCR) NOT DETECTED 08/17/21 14:25 Nasal Coronavir 229E PCR NOT DETECTED 08/17/21 14:25 Nasal Coronavir HKU1 PCR NOT DETECTED 08/17/21 14:25 Nasal Coronavir NL63 PCR NOT DETECTED 08/17/21 14:25 Nasal Coronavir OC43 PCR NOT DETECTED 08/17/21 14:25 Nasal Enterovir/Rhinovir PCR NOT DETECTED 08/17/21 14:25 Nasal Influenza B PCR NOT DETECTED 08/17/21 14:25 Nasal Influenza A PCR NOT DETECTED 08/17/21 14:25 Nasal Parainfluen 1 PCR NOT DETECTED 08/17/21 14:25 Nasal Parainfluen 2 PCR NOT DETECTED 08/17/21 14:25 Nasal Parainfluen 3 PCR NOT DETECTED 08/17/21 14:25 Nasal Parainfluen 4 PCR NOT DETECTED 08/17/21 14:25 Nasal RSV (PCR) NOT DETECTED 08/17/21 14:25 Nasal Screen MRSA (PCR) NEGATIVE (NEGATIVE) 08/20/21 12:41 Nasal B.pertussis DNA PCR NOT DETECTED 08/17/21 14:25 Nasal C.pneumoniae (PCR) NOT DETECTED 08/17/21 14:25 Uday Human Metapneumo PCR NOT DETECTED 08/17/21 14:25 Nasal M.pneumoniae (PCR) NOT DETECTED 08/17/21 14:25 Nasal SARS-CoV-2 (PCR) DETECTED A 08/17/21 14:25 ABX Reporting Has patient been on IV antibiotics over the past 48 hours?: No Current Medications - Current Medications Current Medications: Active Medications Acetaminophen (Acetaminophen 325 Mg Tablet) 650 mg PO Q4HR PRN PRN Reason: Pain 1 to 4 Last Admin: 08/17/21 17:18 Dose: 650 mg Hydrocodone Bitart/Acetaminophen (Hydrocod/Acetam 5/325 Mg Tablet) 1 tab PO Q4HR PRN PRN Reason: Pain 5 to 7 Cholecalciferol (Cholecalciferol 25 Mcg Tablet) 50 mcg PO DAILY [facility] Last Admin: 08/21/21 08:05 Dose: 50 mcg Dexamethasone (Dexamethasone 4 Mg Tablet) 6 mg PO DAILYWM [facility] Last Admin: 08/21/21 08:00 Dose: 6 mg Enoxaparin Sodium (Enoxaparin 40 Mg/0.4 Ml Syringe) 40 mg SUBQ DAILY [facility] Last Admin: 08/21/21 08:05 Dose: 40 mg Guaifenesin (Guaifenesin 600 Mg Tablet) 600 mg PO BID [facility] Last Admin: 08/21/21 08:14 Dose: 600 mg Sodium Chloride (Normal Saline 0.9%) 500 mls @ 999 mls/hr IV ONCE ONE Stop: 08/21/21 12:27 Last Admin: 08/21/21 12:13 Dose: 999 mls/hr Ondansetron HCl (Ondansetron 4 Mg/2 Ml Vial) 4 mg IVP Q6HR PRN PRN Reason: Nausea / Vomiting Sodium Chloride (Sodium Chloride Flush 0.9% 10 Ml Syringe) 10 ml IVP PRN PRN PRN Reason: NEEDED PER PROVIDER ORDERS Last Admin: 08/21/21 05:13 Dose: 10 ml Sodium Chloride (Sodium Chloride Flush 0.9% 10 Ml Syringe) 10 ml IVP 0100 ,0900,1700 [facility] Last Admin: 08/21/21 09:10 Dose: 10 ml Temazepam (Temazepam 15 Mg Capsule) 15 mg PO QPM PRN PRN Reason: Insomnia Last Admin: 08/20/21 22:34 Dose: 15 mg No Known Home Medications 08/19/21
[2021-08-21] MEDS: TEMAZEPAM 15 MG CAPSULE PO PRN (21:33)
[2021-08-22 05:29] LABS: BASOPHILS % (AUTO) 0.5 %; EOSINOPHILS % (AUTO) 0.1 %; HCT - HEMATOCRIT 40.6 % (42.0-52.0); HGB - HEMOGLOBIN 14.8 g/dL (14.0-18.0); LYMPHOCYTES # (AUTO) 1.1 10^3/uL (1.5-3.5); LYMPHOCYTES % (AUTO) 14.5 %; MEAN CORPUSCULAR HEMOGLOBIN 34.3 pg (27.0-31.0); MEAN CORPUSCULAR HGB CONC 36.5 g/dL (32.0-36.0); MEAN CORPUSCULAR VOLUME 94.2 fL (80.0-94.0); MEAN PLATELET VOLUME 9.2 fL (7.4-11.4); MONOCYTES # (AUTO) 0.6 10^3/uL (0.0-1.0); MONOCYTES % (AUTO) 8.1 %; NEUTROPHILS # (AUTO) 5.3 10^3/uL (1.5-6.6); NEUTROPHILS % (AUTO) 72.2 %; PLT - PLATELET COUNT 261 10^3/uL (130-450); RED BLOOD COUNT 4.31 10^6/uL (4.70-6.10); RED CELL DISTRIBUTION WIDTH 12.4 % (12.0-15.0); WHITE BLOOD COUNT 7.4 x10^3/uL (4.8-10.8)
[2021-08-22 05:47] LABS: CALCIUM 8.2 mg/dL (8.5-10.3); CREATININE 0.8 mg/dL (0.6-1.2)
--- NOTE | 2021-08-22 07:46 | PROVIDER PROGRESS NOTE ---
Assessment/Plan - Problem List (1) Respiratory failure with hypoxia Assessment/Plan: Secondary to COVID-19 pneumonia. Improving. We will make the patient MedSurg status. Patient is currently on high flow nasal cannula at an FiO2 of 50% and a flow rate of 40 with oxygen saturation at 94%. He is afebrile and white blood cell count is 7.4. Decadron day 3. Patient completed remdesivir on 08/21/21 D dimer was 394.9. On Lovenox 40 mg subcu daily. (2) Pneumonia due to COVID-19 virus Assessment/Plan: Improving. We will make the patient MedSurg status. Patient is currently on high flow nasal cannula at an FiO2 of 50% and a flow rate of 40 with oxygen saturation at 94%. He is afebrile and white blood cell count is 7.4. Decadron day 3. Patient completed remdesivir on 08/21/21 D dimer was 394.9. On Lovenox 40 mg subcu daily. (3) Insomnia Assessment/Plan: Restoril 15 mg p.o. qHS as needed - Current Meds Current Meds: Current Medications Generic Name Dose Route Start Last Admin Trade Name Freq PRN Reason Stop Dose Admin Acetaminophen 650 mg 08/17/21 15:59 08/17/21 17:18 Acetaminophen 325 Mg Tablet PO 650 mg Q4HR PRN Administration Pain 1 to 4 Cholecalciferol 50 mcg 08/19/21 12:00 08/21/21 08:05 Cholecalciferol 25 Mcg Tablet PO 50 mcg DAILY JEFFREY Administration Dexamethasone 6 mg 08/20/21 08:00 08/21/21 08:00 Dexamethasone 4 Mg Tablet PO 6 mg DAILYWM JEFFREY Administration Enoxaparin Sodium 40 mg 08/18/21 09:00 08/21/21 08:05 Enoxaparin 40 Mg/0.4 Ml Syringe SUBQ 40 mg DAILY JEFFREY Administration Guaifenesin 600 mg 08/19/21 09:00 08/21/21 21:33 Guaifenesin 600 Mg Tablet PO 600 mg BID JEFFREY Administration Sodium Chloride 10 ml 08/17/21 15:59 08/21/21 05:13 Sodium Chloride Flush 0.9% 10 Ml Syringe IVP 10 ml PRN PRN Administration NEEDED PER PROVIDER ORDERS Sodium Chloride 10 ml 08/17/21 17:00 08/21/21 21:22 Sodium Chloride Flush 0.9% 10 Ml Syringe IVP Not Given 0100,0900,1700 JEFFREY Temazepam 15 mg 08/20/21 07:50 08/21/21 21:33 Temazepam 15 Mg Capsule PO 7.5 mg QPM PRN Administration Insomnia - Lab Result Fish Bone Diagrams: 08/22/21 04:55 08/22/21 04:55 Subjective - Subjective Patient Reports: Other (Patient was awake, alert and oriented x3. He was resting comfortably in bed at time of exam. Reports to be breathing better. Denies any other complaints.) Objective Vital Signs: Vital Signs - 24 hr 08/21/21 08/21/21 08/21/21 08:00 09:00 09:45 Temperature 36.9 C Heart Rate [ 62 70 Monitoring electrodes] Respiratory 31 H 29 H 35 H Rate Blood Pressure 109/72 113/70 [Right Brachial artery] O2 Saturation 95 95 94 08/21/21 08/21/21 08/21/21 10:00 11:00 12:00 Temperature 36.8 C Heart Rate [ 61 71 71 Monitoring electrodes] Respiratory 27 H 31 H 36 H Rate Blood Pressure 100/72 81/63 L 120/71 [Right Brachial artery] O2 Saturation 94 93 93 08/21/21 08/21/21 08/21/21 12:16 13:00 13:30 Temperature Heart Rate [ 73 Monitoring electrodes] Respiratory 28 H 22 Rate Blood Pressure 126/82 H [Right Brachial artery] O2 Saturation 94 96 96 08/21/21 08/21/21 08/21/21 14:00 15:00 16:00 Temperature 36.6 C Heart Rate [ 96 67 61 Monitoring electrodes] Respiratory 37 H 26 H 30 H Rate Blood Pressure 117/81 H 123/94 H 147/99 H [Right Brachial artery] O2 Saturation 93 96 94 08/21/21 08/21/21 08/21/21 17:00 18:00 19:00 Temperature Heart Rate [ 60 82 89 Monitoring electrodes] Respiratory 30 H 20 23 Rate Blood Pressure 127/94 H 134/86 H 123/75 [Right Brachial artery] O2 Saturation 95 91 L 92 08/21/21 08/21/21 08/21/21 19:53 20:00 21:00 Temperature 97.8 C H Heart Rate [ 68 61 Monitoring electrodes] Respiratory 30 H 27 H Rate Blood Pressure 114/75 99/79 [Right Brachial artery] O2 Saturation 96 87 L 08/21/21 08/21/21 08/22/21 22:00 23:02 00:00 Temperature 36.8 C Heart Rate [ 69 58 L 57 L Monitoring electrodes] Respiratory 22 14 23 Rate Blood Pressure 112/69 104/72 88/60 L [Right Brachial artery] O2 Saturation 88 L 95 94 08/22/21 08/22/21 08/22/21 01:00 02:00 03:00 Temperature Heart Rate [ 53 L 66 61 Monitoring electrodes] Respiratory 21 26 H 28 H Rate Blood Pressure 114/72 106/70 96/59 L [Right Brachial artery] O2 Saturation 97 96 93 08/22/21 08/22/21 08/22/21 04:00 05:10 06:00 Temperature Heart Rate [ 55 L 58 L Monitoring electrodes] Respiratory 22 9 L 28 H Rate Blood Pressure 123/79 110/74 94/67 [Right Brachial artery] O2 Saturation 96 92 88 L 08/22/21 07:00 Temperature Heart Rate [ 59 L Monitoring electrodes] Respiratory 20 Rate Blood Pressure 90/72 [Right Brachial artery] O2 Saturation 94 Oxygen O2 Source HHFNC Oxygen Flow Rate 4 I&O (Last 24 Hrs): Intake and Output Totals x24h 08/20/21 08/21/21 08/22/21 23:59 23:59 23:59 Intake Total 1720 2090 500 Output Total 2525 2800 750 Balance -805 -710 -250 General: Alert, Oriented x3, Mild distress (respiratory) HEENT: PERRLA, EOMI Neck: Supple, No JVD Neuro: Alert, Oriented Times 3 Cardiovascular: Regular rate, No murmurs Respiratory: Chest non-tender, No respiratory distress, Breath sounds nml, Other (Mild crackles) Abdomen: Normal bowel sounds, Soft, No tenderness Extremities: No clubbing, No cyanosis, No edema Skin: No rashes, No breakdown - Results Results: Laboratory Results WBC 7.4 x10^3/uL (4.8-10.8) 08/22/21 04:55 RBC 4.31 10^6/uL (4.70-6.10) L 08/22/21 04:55 Hgb 14.8 g/dL (14.0-18.0) 08/22/21 04:55 Hct 40.6 % (42.0-52.0) L 08/22/21 04:55 MCV 94.2 fL (80.0-94.0) H 08/22/21 04:55 MCH 34.3 pg (27.0-31.0) H 08/22/21 04:55 MCHC 36.5 g/dL (32.0-36.0) H 08/22/21 04:55 RDW 12.4 % (12.0-15.0) 08/22/21 04:55 Plt Count 261 10^3/uL (130-450) 08/22/21 04:55 MPV 9.2 fL (7.4-11.4) 08/22/21 04:55 Neut # (Auto) 5.3 10^3/uL (1.5-6.6) 08/22/21 04:55 Lymph # (Auto) 1.1 10^3/uL (1.5-3.5) L 08/22/21 04:55 [place] # (Auto) 0.6 10^3/uL (0.0-1.0) 08/22/21 04:55 Eos # (Auto) 0.0 10^3/uL (0.0-0.7) 08/22/21 04:55 Baso # (Auto) 0.0 10^3/uL (0.0-0.1) 08/22/21 04:55 Absolute Nucleated RBC 0.00 x10^3/uL 08/22/21 04:55 Nucleated RBC % 0.0 /100WBC 08/22/21 04:55 D-Dimer 394.9 ng/mL (200.0-255.0) H 08/17/21 15:26 Bld Gas Analysis Time 1206 08/20/21 12:00 ABG pH 7.46 (7.35-7.45) H 08/20/21 12:00 ABG pCO2 35 mmHg (34-45) 08/20/21 12:00 ABG pO2 80 mmHg (80-100) 08/20/21 12:00 ABG HCO3 23.8 mmol/L (22.0-26.0) 08/20/21 12:00 ABG Total CO2 24.8 MMOL/L (21.0-29.0) 08/20/21 12:00 ABG O2 Saturation 96 % (94-98) 08/20/21 12:00 ABG Base Excess 0.5 mmol/L (-2.0-3.0) 08/20/21 12:00 Quinten Test POSITIVE 08/20/21 12:00 Respiration Rate 32 b/min 08/20/21 12:00 O2 Delivery Device NASAL CANNULA 08/20/21 12:00 O2 Liters/Min 40.00 LPM 08/20/21 12:00 FiO2 100.00 08/20/21 12:00 Sodium 134 mmol/L (135-145) L 08/22/21 04:55 Potassium 4.0 mmol/L (3.5-5.0) 08/22/21 04:55 Chloride 100 mmol/L (101-111) L 08/22/21 04:55 Carbon Dioxide 25 mmol/L (21-32) 08/22/21 04:55 Anion Gap 9.0 (6-13) 08/22/21 04:55 BUN 22 mg/dL (6-20) H 08/22/21 04:55 Creatinine 0.8 mg/dL (0.6-1.2) 08/22/21 04:55 Estimated GFR (MDRD) 99 (>89) 08/22/21 04:55 Glucose 101 mg/dL (70-100) H 08/22/21 04:55 Calcium 8.2 mg/dL (8.5-10.3) L 08/22/21 04:55 B-Natriuretic Peptide 69 pg/mL (5-100) 08/17/21 15:26 Nasal Adenovirus (PCR) NOT DETECTED 08/17/21 14:25 Nasal B. parapertussis DNA (PCR) NOT DETECTED 08/17/21 14:25 Nasal Coronavir 229E PCR NOT DETECTED 08/17/21 14:25 Nasal Coronavir HKU1 PCR NOT DETECTED 08/17/21 14:25 Nasal Coronavir NL63 PCR NOT DETECTED 08/17/21 14:25 Nasal Coronavir OC43 PCR NOT DETECTED 08/17/21 14:25 Nasal Enterovir/Rhinovir PCR NOT DETECTED 08/17/21 14:25 Nasal Influenza B PCR NOT DETECTED 08/17/21 14:25 Nasal Influenza A PCR NOT DETECTED 08/17/21 14:25 Nasal Parainfluen 1 PCR NOT DETECTED 08/17/21 14:25 Nasal Parainfluen 2 PCR NOT DETECTED 08/17/21 14:25 Nasal Parainfluen 3 PCR NOT DETECTED 08/17/21 14:25 Nasal Parainfluen 4 PCR NOT DETECTED 08/17/21 14:25 Nasal RSV (PCR) NOT DETECTED 08/17/21 14:25 Nasal Screen MRSA (PCR) NEGATIVE (NEGATIVE) 08/20/21 12:41 Nasal B.pertussis DNA PCR NOT DETECTED 08/17/21 14:25 Nasal C.pneumoniae (PCR) NOT DETECTED 08/17/21 14:25 Uday Human Metapneumo PCR NOT DETECTED 08/17/21 14:25 Nasal M.pneumoniae (PCR) NOT DETECTED 08/17/21 14:25 Nasal SARS-CoV-2 (PCR) DETECTED A 08/17/21 14:25 ABX Reporting Has patient been on IV antibiotics over the past 48 hours?: No
[2021-08-22] MEDS: guaiFENesin 600 MG TABLET PO SCH ×2 (08:47→21:37)
[2021-08-22] MEDS: SODIUM CHLORIDE FLUSH 0.9% 10 ML SYRINGE IVP SCH ×2 (08:47→21:38)
[2021-08-22] MEDS: dexAMETHasone 4 MG TABLET PO SCH (08:47)
[2021-08-22] MEDS: CHOLECALCIFEROL 25 MCG TABLET PO SCH (08:47)
[2021-08-22] MEDS: ENOXAPARIN 40 MG/0.4 ML SYRINGE SUBQ SCH (08:47)
[2021-08-23] MEDS: SODIUM CHLORIDE FLUSH 0.9% 10 ML SYRINGE IVP SCH ×2 (00:45→09:11)
[2021-08-23 06:37] LABS: BASOPHILS % (AUTO) 0.5 %; EOSINOPHILS # (AUTO) 0.1 10^3/uL (0.0-0.7); EOSINOPHILS % (AUTO) 0.6 %; HCT - HEMATOCRIT 40.1 % (42.0-52.0); HGB - HEMOGLOBIN 14.7 g/dL (14.0-18.0); LYMPHOCYTES # (AUTO) 1.1 10^3/uL (1.5-3.5); LYMPHOCYTES % (AUTO) 13.4 %; MEAN CORPUSCULAR HEMOGLOBIN 34.8 pg (27.0-31.0); MEAN CORPUSCULAR HGB CONC 36.7 g/dL (32.0-36.0); MEAN PLATELET VOLUME 9.1 fL (7.4-11.4); MONOCYTES # (AUTO) 0.5 10^3/uL (0.0-1.0); MONOCYTES % (AUTO) 6.3 %; NEUTROPHILS # (AUTO) 5.9 10^3/uL (1.5-6.6); NEUTROPHILS % (AUTO) 73.6 %; PLT - PLATELET COUNT 229 10^3/uL (130-450); RED BLOOD COUNT 4.22 10^6/uL (4.70-6.10); RED CELL DISTRIBUTION WIDTH 12.6 % (12.0-15.0)
[2021-08-23 06:41] LABS: CALCIUM 8.3 mg/dL (8.5-10.3); CREATININE 0.7 mg/dL (0.6-1.2)
[2021-08-23 06:42] LABS: SLIDE REVIEW? Indicated
[2021-08-23 07:09] LABS: PLATELET ESTIMATE, MANUAL NORMAL (130-450,000) (NORMAL); PLATELET MORPHOLOGY NORMAL APPEARANCE (NORMAL); RBC MORPHOLOGY (MULTIPLE) NORMAL APPEARANCE (NORMAL); WBC MORPHOLOGY (MULTIPLE) NORMAL APPEARANCE (NORMAL)
[2021-08-23] MEDS ORDERED: DEXAMETHASONE 4 MG/ML VIAL IVP SCH (09:00)
[2021-08-23] MEDS ORDERED: dexAMETHasone 4 MG TABLET PO SCH (09:00)
[2021-08-23] MEDS: ENOXAPARIN 40 MG/0.4 ML SYRINGE SUBQ SCH (09:11)
[2021-08-23] MEDS: guaiFENesin 600 MG TABLET PO SCH (09:11)
[2021-08-23] MEDS: CHOLECALCIFEROL 25 MCG TABLET PO SCH (09:11)
--- NOTE | 2021-08-23 10:20 | PROVIDER PROGRESS NOTE ---
Objective - Vital Signs/Intake & Output Vital Signs: Vital Signs x48h Temp Pulse Resp BP Pulse Ox 08/23/21 08:46 36.7 C 64 20 95/69 95 08/23/21 05:00 47 L 24 107/77 94 Intake & Output: Intake & Output 08/20/21 08/21/21 08/22/21 08/23/21 23:59 23:59 23:59 23:59 Intake Total 1720 2090 1860 1300 Output Total 2525 2800 2695 1315 Balance -805 -710 -835 -15 - Lab Results Fish Bones: 08/23/21 06:21 08/23/21 06:21 Other Labs: Lab Results x24hrs 08/23/21 08/23/21 Range/Units 06:21 06:21 WBC 8.0 (4.8-10.8) x10^3/uL RBC 4.22 L (4.70-6.10) 10^6/uL Hgb 14.7 (14.0-18.0) g/dL Hct 40.1 L (42.0-52.0) % MCV 95.0 H (80.0-94.0) fL MCH 34.8 H (27.0-31.0) pg MCHC 36.7 H (32.0-36.0) g/dL RDW 12.6 (12.0-15.0) % Plt Count 229 (130-450) 10^3/uL MPV 9.1 (7.4-11.4) fL Neut # (Auto) 5.9 (1.5-6.6) 10^3/uL Lymph # (Auto) 1.1 L (1.5-3.5) 10^3/uL [place] # (Auto) 0.5 (0.0-1.0) 10^3/uL Eos # (Auto) 0.1 (0.0-0.7) 10^3/uL Baso # (Auto) 0.0 (0.0-0.1) 10^3/uL Absolute Nucleated RBC 0.00 x10^3/uL Nucleated RBC % 0.0 /100WBC Manual Slide Review Indicated WBC Morphology NORMAL APPEARANCE (NORMAL) Platelet Estimate NORMAL (130-450,000) (NORMAL) Platelet Morphology NORMAL APPEARANCE (NORMAL) RBC Morph Micro Appear NORMAL APPEARANCE (NORMAL) Sodium 135 (135-145) mmol/L Potassium 4.0 (3.5-5.0) mmol/L Chloride 101 (101-111) mmol/L Carbon Dioxide 26 (21-32) mmol/L Anion Gap 8.0 (6-13) BUN 19 (6-20) mg/dL Creatinine 0.7 (0.6-1.2) mg/dL Estimated GFR (MDRD) 116 (>89) Glucose 127 H (70-100) mg/dL Calcium 8.3 L (8.5-10.3) mg/dL
--- NOTE | 2021-08-23 12:34 | Discharge Plan ---
Discharge Plan Problem Reviewed?: Yes Disposition: Against Medical Advice Condition: Fair Prescriptions: dexAMETHasone [Decadron] 6 mg PO DAILYWM 3 Days #5 tablet Diet: Regular Health Concerns: You were admitted to the hospital because of pneumonia due to COVID-19. You were treated with oxygen, remdesivir, and steroids. You have improved but continued to require oxygen supplementation. We have recommended that you remain hospitalized but you prefer to go home and you will be leaving AGAINST MEDICAL ADVICE. We have prescribed you oxygen to take with activity. This will be 2 L of oxygen. I have also prescribed you steroids to take for another 3 days with the last day being August 26. Plan of Treatment: Please make sure to take the steroids for 3 more days as prescribed. Please continue with the oxygen until you follow-up with a doctor to ensure that you do not need it any longer. Assessment: The patient and family expressed understanding of the treatment plan. No Smoking: If you smoke, Please STOP! Call for help.
--- NOTE | 2021-08-23 12:34 | DISCHARGE SUMMARY ---
Discharge Summary Admit Date: 08/17/21 Discharge Date: 08/23/21 Discharging Provider: Sadiq Nino Primary Care Provider: No PCP Code Status: Attempt Resuscitation Condition at Discharge: Fair Discharge Disposition: 07 Against Medical Advice - DIAGNOSES Admission Diagnoses: Respiratory failure with hypoxia Pneumonia COVID-19 virus Discharge Diagnoses with Status of Each Condition: Acute respiratory failure with hypoxia - ongoing. Pneumonia due to COVID-19 - ongoing. - HPI History of Present Illness: H&P per JES Hahn: This is a 60-yrs old male without significant medical history who present ER complain of shortness of breath. pt report he had positive covid test in his home kit. But when he Went to [facility] yesterday, he had negative Covid 19 test at there. He was given hydrocodone, albuterol, zofran to be d/c to home. But he continue to feel sick, malaise, body aches, cough, shortness of breath. he had middle of 80% O2 sat at home. In ER, pt is febrile at 38.2 degree. pt required 4 liter of O2 at 96% O2 sats in ER. Covid test in ER is positive. Pt report he had once Zaid&Binh vaccination. he denies abdominal pain but report whole body aches. physical exam does not reveal Trejo sign. CXR reveals Marked interval progression of bilaterally pulmonary opacities, most suggestive of pneumonia, underlying area of edema and or atelectasis cannot be excluded. Routine laboratory tests show WBC 4.4, D-dimer 394. Given above medical conditions, medical team was consulted for admission. Discussed care goal with patient, patient hope to have full code - HOSPITAL COURSE Hospital Course: She was admitted for acute hypoxic respiratory failure secondary to COVID-19 pneumonia. He was treated with remdesivir, Decadron as well as Lovenox initially. A CTA of the chest was obtained which showed no evidence of PE. His oxygen requirements increased and he was transferred to the ICU as he required high flow nasal cannula. He required 100 percent FiO2 at 40 L a minute via high flow nasal cannula. The patient did want to leave AGAINST MEDICAL ADVICE but after further discussion with critically ill he was, he was agreeable to remain hospitalized and continue his care. Fortunately, after about 5 days of hospitalization, he began to show improvement in his oxygenation. His FiO2 is decreased to 50% and his flow remained at 40 L a minute. The following day he was weaned to 5 L of oxygen via nasal cannula. The patient on this date was adamant on leaving AGAINST MEDICAL ADVICE. I discussed with him the importance of continuing medical therapy especially given his improvement. He insisted on going home. I discussed with him that by leaving his medical advice he may worsen and potentially from this infection. We did perform an exercise desaturation test prior to discharge and he saturating 90% on room air at rest but he required 2 L of oxygen with activity and she desaturated to the mid 80s. This improved to over 88% with 2 L of oxygen. He was agreeable to being on oxygen at home and was agreeable to self-pay for this. I did prescribe him 3 more days of Decadron to take to complete 10 days of therapy. I did ask him to follow-up with either primary care doctor or walk-in clinic in 1 to 2 weeks to e nsure he is doing well and to see if he can be weaned off of the oxygen. I discussed this with his daughter as well who is in agreement with the plan. - ALLERGIES Allergies/Adverse Reactions: Allergies Allergy/AdvReac Type Severity Reaction Status Date / Time No Known Drug Allergies Allergy Verified 08/17/21 13:16 - MEDICATIONS Home Medications: Ambulatory Orders Medication Instructions Recorded Confirmed dexAMETHasone [Decadron] 6 mg PO DAILYWM 3 Days #5 tablet 08/23/21 - PHYSICAL EXAM AT DISCHARGE General Appearance: positive: No acute distress, Alert Eyes Bilateral: positive: Normal inspection, No lid inflammation ENT: positive: ENT inspection nml Neck: positive: Nml inspection Respiratory: positive: No respiratory distress, Rhonchi. negative: Wheezes, Rales Cardiovascular: positive: Regular rate & rhythm, No murmur. negative: Tachycardia Abdomen: positive: Non-tender, No distention. negative: Tenderness Skin: positive: Warm, Dry Extremities: positive: No pedal edema Neurologic/Psychiatric: positive: Motor nml. negative: Disoriented to person, Disoriented to place, Disoriented to time Physical Exam Other/Comments: Vital Signs (72 hours) 08/21/21 08/21/21 08/21/21 19:00 19:53 20:00 Temperature 97.8 C H Heart Rate Heart Rate [ 89 68 Monitoring electrodes] Respiratory 23 30 H Rate Blood Pressure 123/75 114/75 [Right Brachial artery] O2 Saturation 92 96 08/21/21 08/21/21 08/21/21 21:00 22:00 23:02 Temperature Heart Rate Heart Rate [ 61 69 58 L Monitoring electrodes] Respiratory 27 H 22 14 Rate Blood Pressure 99/79 112/69 104/72 [Right Brachial artery] O2 Saturation 87 L 88 L 95 08/22/21 08/22/21 08/22/21 00:00 01:00 02:00 Temperature 36.8 C Heart Rate Heart Rate [ 57 L 53 L 66 Monitoring electrodes] Respiratory 23 21 26 H Rate Blood Pressure 88/60 L 114/72 106/70 [Right Brachial artery] O2 Saturation 94 97 96 08/22/21 08/22/21 08/22/21 03:00 04:00 05:10 Temperature Heart Rate Heart Rate [ 61 55 L Monitoring electrodes] Respiratory 28 H 22 9 L Rate Blood Pressure 96/59 L 123/79 110/74 [Right Brachial artery] O2 Saturation 93 96 92 08/22/21 08/22/21 08/22/21 06:00 07:00 08:00 Temperature Heart Rate Heart Rate [ 58 L 59 L 59 L Monitoring electrodes] Respiratory 28 H 20 24 Rate Blood Pressure 94/67 90/72 100/69 [Right Brachial artery] O2 Saturation 88 L 94 94 08/22/21 08/22/21 08/22/21 09:00 10:00 11:00 Temperature Heart Rate Heart Rate [ 77 117 H 85 Monitoring electrodes] Respiratory 21 36 H 30 H Rate Blood Pressure 91/66 102/57 L 106/73 [Right Brachial artery] O2 Saturation 94 98 100 08/22/21 08/22/21 08/22/21 12:00 13:00 14:00 Temperature Heart Rate Heart Rate [ 72 69 66 Monitoring electrodes] Respiratory 25 H 29 H 30 H Rate Blood Pressure 107/78 114/75 124/76 [Right Brachial artery] O2 Saturation 96 95 94 08/22/21 08/22/21 08/22/21 15:00 16:00 17:00 Temperature Heart Rate Heart Rate [ 69 76 83 Monitoring electrodes] Respiratory 19 21 29 H Rate Blood Pressure 125/80 113/74 119/90 H [Right Brachial artery] O2 Saturation 97 99 96 08/22/21 08/23/21 08/23/21 21:00 00:16 05:00 Temperature Heart Rate Heart Rate [ 84 63 47 L Monitoring electrodes] Respiratory 21 25 H 24 Rate Blood Pressure 114/68 115/72 107/77 [Right Brachial artery] O2 Saturation 90 L 96 94 08/23/21 08/23/21 08/23/21 08:46 10:58 11:15 Temperature 36.7 C Heart Rate Heart Rate [ 64 Monitoring electrodes] Respiratory 20 Rate Blood Pressure 95/69 [Right Brachial artery] O2 Saturation 95 92 95 08/23/21 08/23/21 08/23/21 11:55 12:22 14:00 Temperature Heart Rate 84 Heart Rate [ 85 Monitoring electrodes] Respiratory 20 Rate Blood Pressure 114/68 [Right Brachial artery] O2 Saturation 91 L 90 L - LABS Result Diagrams: 08/23/21 06:21 08/23/21 06:21 - DIAGNOSTIC IMAGING Diagnostic Imaging Results: Final report reviewed - FOLLOW UP Follow Up: He was asked to follow-up with a primary care physician or the walk-in clinic in 1 to 2 weeks. - TIME SPENT Time Spent in Discharge (Minutes): 35 (35 minutes were spent on discharge including discussing the risks of leaving AGAINST MEDICAL ADVICE.)
[2021-08-23 14:00] VITALS: BP 114/68
== END 2021-08-23 14:40 | disposition left against medical advice (07) | DRG 177 ==
LOC: ED 13:04 → MS2 15:59 → ICU 08-20 11:35 → MS2 08-23 07:00
PROVIDERS: ADMIT Nurse Practitioner Gerontology; ATTEND Internal Medicine
PROC: XW033E5 Introduction of Remdesivir Anti-infective into Peripheral Vein, Percutaneous Approach, New Technology Group 5 (ICD-10-PCS; principal; 2021-08-17)
PROC: 3E0333Z Introduction of Anti-inflammatory into Peripheral Vein, Percutaneous Approach (ICD-10-PCS; 2021-08-17)
DX: U07.1 COVID-19 (principal); J12.82 Pneumonia due to coronavirus disease 2019; J96.01 Acute respiratory failure with hypoxia; G47.00 Insomnia, unspecified; Z53.29 Procedure and treatment not carried out because of patient's decision for other reasons
CPT/HCPCS: 0202U; 36415; 36600; 71045; 71275; 80048; 82803; 83880; 85025; 85379; 87150; 93005; 94761; 96374; 96375; 99285; A9270; J1650; J7120; J8540; Q9967

== ENCOUNTER 2023-08-05 20:21 | Emergency (ER) | payer OTHER ==
--- NOTE | 2023-08-05 20:47 | ED Physician Documentation ---
History of Present Illness - Stated complaint Stated Complaint: SYNCOPE/CONGESTION/COUGH - Chief complaint Chief Complaint: General - History obtained from History obtained from: Patient, Family - Additonal information Additional information: This is a 62-year-old Burmese-speaking male who presents with his daughter who assists with translation. The patient states that he has had some mucus in the back of his throat the last couple of days and this morning around 4 AM he got up and was trying to cough strongly to clear his throat and he apparently had a syncopal episode. He woke up on the ground. He states he is not sure if he hit his head or how he fell. He is not aware of any injuries. He woke up on the ground, he did not have any loss of bowel or bladder, and no known injuries. He was fine throughout the day but this evening again he was trying to cough to clear his throat and the felt like he had to hold on to arrival in the bathroom to avoid having another syncopal episode. He otherwise feels well, denies any headache, no vision changes, no facial weakness no extremity weakness, no chest pain or difficulty breathing, no heart palpitations. He has not had any abdominal pain nausea vomiting diarrhea, no urinary symptoms. He is been tolerating p.o. well. He is normally independent and active at baseline. 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 He denies any new medications. Daughter later lets me know that the patient had A cold about a week ago with cough, nasal congestion and fever. That has actually improved he just continues to have a irritant cough periodically causing fits of coughing. Review of Systems Constitutional: reports: Reviewed and negative Eyes: reports: Reviewed and negative Ears: reports: Reviewed and negative Nose: reports: Congestion Throat: reports: Reviewed and negative Cardiac: reports: Reviewed and negative Respiratory: reports: Cough. denies: Dyspnea, Hemoptysis, Wheezing GI: reports: Reviewed and negative : reports: Reviewed and negative Skin: reports: Reviewed and negative Musculoskeletal: reports: Reviewed and negative Neurologic: reports: Near syncope, Syncope. denies: Generalized weakness, Focal weakness, Numbness, Difficulty speaking, Seizure, Confused, Altered mental status, Unresponsive, Headache, Head injury, LOC Psychiatric: reports: Reviewed and negative Endocrine: reports: Reviewed and negative PD PAST MEDICAL HISTORY - Past Medical History Past Medical History: No - Past Surgical History Past Surgical History: No - Present Medications Home Medications: Ambulatory Orders Medication Instructions Recorded Confirmed dexAMETHasone [Decadron] 6 mg PO DAILYWM 3 Days #5 tablet 08/23/21 Benzonatate [Tessalon] 200 mg PO TID PRN #20 cap 08/05/23 - Allergies Allergies/Adverse Reactions: Allergies Allergy/AdvReac Type Severity Reaction Status Date / Time No Known Drug Allergies Allergy Verified 08/05/23 20:27 - Social History Does the pt smoke?: No Smoking Status: Never smoker Does the pt drink ETOH?: No Does the pt have substance abuse?: Yes - Immunizations Immunizations are current?: Yes Immunizations: TDAP >10years/unknown - POLST Patient has POLST: No PD ED PE NORMAL - Vitals Vital signs reviewed: Yes - General General: Alert and oriented X 3, No acute distress, Well developed/nourished - HEENT HEENT: Atraumatic, Moist mucous membranes, Pharynx benign - Neck Neck: Supple, no meningeal sign, No adenopathy, No JVD - Cardiac Cardiac: RRR, No murmur, No gallop, No rub, Strong equal pulses - Respiratory Respiratory: No respiratory distress, Clear bilaterally - Abdomen Abdomen: Normal bowel sounds, Soft, Non tender, Non distended - Back Back: No CVA TTP, No spinal TTP - Derm Derm: Normal color, Warm and dry, No rash - Extremities Extremities: No deformity, No tenderness to palpate, Normal ROM s pain, No edema, No calf tenderness / cord - Neuro Neuro: Alert and oriented X 3, 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 Relevant findings are: Rate: Rate (enter#) (91) Rhythm: NSR [place]: LAD Intervals: Normal [place] QRS: Normal Ischemia: Normal ST segments Computer interpretation: Agree with computer - Labs Labs: Laboratory Tests 08/05/23 08/05/23 08/05/23 20:55 20:55 20:55 WBC 7.8 RBC 4.99 Hgb 15.0 Hct 43.5 MCV 87.2 MCH 30.1 MCHC 34.5 RDW 12.7 Plt Count 180 MPV 9.9 Neut # (Auto) 5.5 Lymph # (Auto) 1.4 L [place] # (Auto) 0.7 Eos # (Auto) 0.2 Baso # (Auto) 0.0 Absolute Nucleated RBC 0.00 Nucleated RBC % 0.0 Sodium 137 Potassium 4.2 Chloride 105 Carbon Dioxide 25 Anion Gap 7.0 BUN 14 Creatinine 0.7 Estimated GFR (MDRD) 115 Glucose 160 H Calcium 8.9 Troponin I High Sens 2.7 - Rads (name of study) No standard instances Relevant Findings:: Final report received PD Medical Decision Making - ED course Complexity details: reviewed old records, reviewed results, re-evaluated patient, considered differential, d/w patient, d/w family ED course: 62-year-old male presented after having a syncopal episode work coughing to clear his throat. He had this this morning and then another episode of near syn cope while trying to clear his throat this evening. He is very well-appearing here on physical exam, no acute distress. I suspected cough and syncope but did obtain additional lab work to evaluate for other sources in we also obtain EKG and chest x-ray. His labs are largely reassuring, his high-sensitivity troponin is within normal limits, CBC and CMP are stable. His glucose is mildly elevated though he did just eat shortly prior to arrival and indulgent dessert. He has a essentially normal EKG and no acute ischemic changes, his chest x-ray is unremarkable. As both these episodes occurred while forcefully trying to cough and clear his throat, I suspect this is cough syncope. I have encouraged the patient to try to avoid these coughing episodes if possible but if he is feeling like he needs to cough, he should hold onto something or sit down in a chair to avoid syncopizinh. He was also given a prescription for Tessalon Perles to help reduce his cough or he can take [id number] [id number] to try to help expel the mucus. He did have cold symptoms earlier that are improving and I think this is likely a viral URI that is nearly resolved. Patient is stable for discharge home, return precautions reviewed if new or worsening symptoms. Departure - Departure Disposition: 01 Home, Self Care Clinical Impression: Cough syncope Condition: Good Instructions: ED Syncope Vasovagal Prescriptions: Benzonatate [Tessalon] 200 mg PO TID PRN #20 cap PRN Reason: Cough Comments: Slim's labs are stable and his chest x-ray and EKG are normal. I think he likely had an episode of cough syncope this is when your body briefly passes out after undergoing a irritant triggers such as coughing or sneezing. There is no specific treatment for it other than to try to avoid fits of coughing and if he is coughing hard to hold onto something or sit down so that he does not fall and injure himself. I will also give him a cough medication to use as needed. If he has any new or worsening concerns, return to the ER. The viral panel is not available yet. You can see results online or we will notify you if the Covid test is positive. Forms: PCP List
--- NOTE | 2023-08-05 20:53 | XRAY Report ---
PROCEDURE: Chest 1V INDICATIONS: chest pain TECHNIQUE: One view of the chest was acquired. COMPARISON: Chest x-ray 08/20/2021. FINDINGS: Surgical changes and devices: None. Lungs and pleura: No pleural effusions or pneumothorax. Lungs are clear. Mediastinum: Mediastinal contours appear normal. Heart size is normal. Bones and chest wall: No suspicious bony lesions. Overlying soft tissues appear unremarkable. IMPRESSION: No acute cardiopulmonary process. Reviewed by: Michael Dseir MD on 08/05/2023 8:52 PM PST Approved by: Michael Desir MD on 08/05/2023 8:52 PM PST Station ID: [id number]
[2023-08-05 21:02] LABS: BASOPHILS % (AUTO) 0.4 %; EOSINOPHILS # (AUTO) 0.2 10^3/uL (0.0-0.7); EOSINOPHILS % (AUTO) 2.4 %; HCT - HEMATOCRIT 43.5 % (42.0-52.0); LYMPHOCYTES # (AUTO) 1.4 10^3/uL (1.5-3.5); LYMPHOCYTES % (AUTO) 18.1 %; MEAN CORPUSCULAR HEMOGLOBIN 30.1 pg (27.0-31.0); MEAN CORPUSCULAR HGB CONC 34.5 g/dL (32.0-36.0); MEAN CORPUSCULAR VOLUME 87.2 fL (80.0-94.0); MEAN PLATELET VOLUME 9.9 fL (7.4-11.4); MONOCYTES # (AUTO) 0.7 10^3/uL (0.0-1.0); MONOCYTES % (AUTO) 8.4 %; NEUTROPHILS # (AUTO) 5.5 10^3/uL (1.5-6.6); NEUTROPHILS % (AUTO) 70.3 %; PLT - PLATELET COUNT 180 10^3/uL (130-450); RED BLOOD COUNT 4.99 10^6/uL (4.70-6.10); RED CELL DISTRIBUTION WIDTH 12.7 % (12.0-15.0); WHITE BLOOD COUNT 7.8 x10^3/uL (4.8-10.8)
[2023-08-05 21:31] LABS: CALCIUM 8.9 mg/dL (8.5-10.3); CREATININE 0.7 mg/dL (0.6-1.3); POTASSIUM 4.2 mmol/L (3.5-4.5)
[2023-08-05] MEDS ORDERED: guaiFENesin 600 MG TABLET PO STA (21:40)
[2023-08-05 21:48] LABS: B. PARAPERTUSSIS- RESP PCR PAN NOT DETECTED; B. PERTUSSIS- RESP PCR PANEL NOT DETECTED; C. PNEUMONIAE- RESP PCR PANEL NOT DETECTED; CORONAVIRUS 229E-RESP PCR NOT DETECTED; CORONAVIRUS HKU1-RESP PCR NOT DETECTED; CORONAVIRUS NL63-RESP PCR NOT DETECTED; CORONAVIRUS OC43-RESP PCR NOT DETECTED; HUMAN METAPNEUMOVIRUS NOT DETECTED; INFLUENZA A- RESP PCR PANEL NOT DETECTED; INFLUENZA B - RESP PCR PANEL NOT DETECTED; M. PNEUMONIAE- RESP PCR PANEL NOT DETECTED; PARAINFLUENZA VIRUS 1 NOT DETECTED; PARAINFLUENZA VIRUS 2 NOT DETECTED; PARAINFLUENZA VIRUS 3 NOT DETECTED; PARAINFLUENZA VIRUS 4 NOT DETECTED; RHINOVIRUS/ENTEROVIRUS NOT DETECTED; RSV- RESP PCR PANEL NOT DETECTED; SARS-CoV-2 -RESP PCR PANEL NOT DETECTED
[2023-08-05 22:16] VITALS: BP 118/70; O2SAT 96
== END 2023-08-05 22:13 | disposition home or self-care (01) ==
LOC: ED 20:21
DX: R55 Syncope and collapse (principal); R05.9 Cough, unspecified; Z11.52 Encounter for screening for COVID-19
CPT/HCPCS: 36415; 71045; 80048; 84484; 85025; 87633; 93005; 99284; A9270

== ENCOUNTER 2023-09-11 08:23 | Outpatient (CLI) | payer OTHER ==
[2023-09-11 08:48] LABS: BASOPHILS % (AUTO) 0.6 %; EOSINOPHILS # (AUTO) 0.2 10^3/uL (0.0-0.7); EOSINOPHILS % (AUTO) 3.8 %; HCT - HEMATOCRIT 47.7 % (42.0-52.0); HGB - HEMOGLOBIN 16.2 g/dL (14.0-18.0); LYMPHOCYTES % (AUTO) 39.6 %; MEAN CORPUSCULAR HEMOGLOBIN 30.1 pg (27.0-31.0); MEAN CORPUSCULAR VOLUME 88.7 fL (80.0-94.0); MEAN PLATELET VOLUME 10.5 fL (7.4-11.4); MONOCYTES # (AUTO) 0.4 10^3/uL (0.0-1.0); MONOCYTES % (AUTO) 8.5 %; NEUTROPHILS # (AUTO) 2.3 10^3/uL (1.5-6.6); NEUTROPHILS % (AUTO) 47.3 %; PLT - PLATELET COUNT 141 10^3/uL (130-450); RED BLOOD COUNT 5.38 10^6/uL (4.70-6.10); RED CELL DISTRIBUTION WIDTH 13.7 % (12.0-15.0)
[2023-09-11 09:01] LABS: ALBUMIN/GLOBULIN RATIO 1.6 (1.0-2.2); ALKALINE PHOSPHATASE 65 IU/L (42-121); ALT ALANINE AMINOTRANSFERASE 23 IU/L (10-60); AST ASPARTATE AMINOTRANSFERASE 25 IU/L (10-42); BILIRUBIN,TOTAL 0.6 mg/dL (0.2-1.0); BUN - BLOOD UREA NITROGEN 18 mg/dL (6-20); CALCIUM 9.2 mg/dL (8.5-10.3); CARBON DIOXIDE - CO2 27 mmol/L (21-32); CHLORIDE 107 mmol/L (101-111); CHOL/HDL RATIO 4.8 (<5.0); CHOLESTEROL 169 mg/dL; CREATININE 0.7 mg/dL (0.6-1.3); GFR - MDRD 115 (>89); GLUCOSE 102 mg/dL (74-104); HDL CHOLESTEROL 35 mg/dL; LDL CHOLESTEROL,CALCULATED 93 mg/dL; LDL/HDL RATIO 2.7 (<3.6); POTASSIUM 4.1 mmol/L (3.5-4.5); SODIUM 139 mmol/L (135-145); TOTAL PROTEIN 6.5 g/dL (6.4-8.9); TRIGLYCERIDES 204 mg/dL (48-352); VLDL CHOLESTEROL 41 mg/dL
[2023-09-11 09:16] LABS: THYROID STIMULATING HORMONE 3.11 uIU/mL (0.34-5.60)
[2023-09-11 13:54] LABS: ESTIMATED AVERAGE GLUCOSE 108 mg/dL (70-100); HEMOGLOBIN A1c% 5.4 % (4.27-6.07)
== END 2023-09-11 08:24 | disposition home or self-care (01) ==
LOC: LAB 08:23
PROVIDERS: ATTEND Physician Assistant
DX: R73.9 Hyperglycemia, unspecified (principal); Z13.9 Encounter for screening, unspecified; Z12.5 Encounter for screening for malignant neoplasm of prostate
CPT/HCPCS: 36415; 80053; 80061; 83036; 83721; 84153; 84443; 85025